=== PATIENT | male | born 1990 | race Caucasian/White ===

== ENCOUNTER 2018-06-26 13:44 | Emergency (ER) | payer MEDICARE, SELFPAY ==
[2018-06-26 13:46] VITALS: BP 137/87; PULSE 102; RESP 17; TEMP 36.5; O2SAT 98; BMI 43.7
[2018-06-26 14:14] VITALS: BP 143/84; PULSE 112; RESP 16; O2SAT 96
--- NOTE | 2018-06-26 15:11 | RAD_ITS ---
STUDY: X-RAY CHEST REASON FOR EXAM: Male, 27 years old. Cough. TECHNIQUE: PA and lateral views of the chest. COMPARISON: Comparison is made with prior study dated June 24, 2016. FINDINGS: The lungs are clear and expanded. Scattered calcified granulomas. There is no demonstrated pleural abnormality. Normal size heart. Normal mediastinum and kyle. Normal visualized pulmonary arteries. Normal visualized aortic arch and descending thoracic aorta. Normal visualized thoracic spine. Normal visualized ribs, clavicles, and shoulders. There is no demonstrated abnormality of the visualized soft tissue structures of the upper abdomen. RAD/Chest PA and Lateral IMPRESSION: Normal x-ray examination of the chest. Electronically Signed: Joel Ferraro MD at 15:53 EST , Service support ,
--- NOTE | 2018-06-26 15:12 | ED.VIS.GEN ---
History of Present Illness Chief Complaint: Shortness of Breath Detail of Chief Complaint: Rash started at 1330 Informant: Patient Onset: Days Context: Sudden Onset Quality: Viral symptoms presents because of rash noted at 1330 Location: Generalized Current Severity: Mild Maximum Severity: Mild Worsened by: Nothing Relieved by: Nothing Associated Symptoms: Pruritic rash with respiratory and GI symptoms Narrative: Patient is a 27-year-old male with history of asthma. He reports allergy to amoxicillin as a child. States he had a rash. He presents with mild congestion shortness of breath, which he thought was exacerbation of his asthma. He also complained of nausea. He is unaware of any recent ill contacts. He denies documented fever. He denies ocular, visual or auditory symptoms. He denies chest discomfort. He denies urologic symptoms. He denies ingestion of any berries, nuts or seafood for lunch. He has no known allergies to food. Prior similar symptoms: No Recent Illness/Hospitalization: No Past Medical History - Allergies and Home Meds Allergies/Adverse Reactions: Allergies acetaminophen [From Tylenol] Allergy (Verified 06/26/18 13:45) Unknown amoxicillin trihydrate [From Augmentin] Adverse Reaction (Verified 06/26/18 13:45) Vomiting diphenhydramine HCl [From Benadryl] Adverse Reaction (Verified 06/26/18 13:45) Other potassium clavulanate [From Augmentin] Adverse Reaction (Verified 06/26/18 13:45) Vomiting Primary Care Physician: Aniyah Arechiga MD [Primary Care Provider] - Past Medical History: - - Asthma Surgical History: no surgical history Lives: Alone Smoking Status: Never smoker Alcohol: Rare Drugs: None Review of Systems General: Denies: Chills, Fever, Sweats Eyes: Denies: Visual changes - bilaterally, Blurred Vision - bilaterally, Diplopia ENT: Reports: Rhinorrhea - He reports congestion. Denies: Bilateral ear pain, Sore throat Cardiovascular: Denies: Chest pain, Palpitations Respiratory: Reports: Dyspnea, Cough, Dyspnea on exertion. Denies: Sputum, Orthopnea, Paroxysmal nocturnal dyspnea Gastrointestinal: Reports: Nausea. Denies: Abdominal pain, Vomiting, Diarrhea, Melena, Hematochezia Genitourinary: Denies: Dysuria, Hematuria, Frequency Musculoskeletal: Denies: Myalgias, Arthralgias, Back pain, Extremity Pain Skin: Reports: Rash - generalize erythematous purutic rash.. Denies: Wounds Neurological: Denies: Headache, Weakness, Numbness Hematologic: Denies: Easy bruising, Easy bleeding Allergy: Denies: Uticaria, Swelling of the mouth, Swelling of the tongue Physical Exam Vital Signs/Narrative: Vital Signs Temp Pulse Resp BP Pulse Ox 06/26/18 14:14 112 H 16 143/84 H 96 06/26/18 13:46 97.7 F L 102 H 17 137/87 H 98 Inital Vital Signs reviewed: Yes General: Well nourished, Well developed, Obese, No Acute Distress Head: Normocephalic, Atraumatic Eyes: Perrl, EOMI. Negative for: Pale conjunctiva, Scleral icterus ENT: Moist mucous membranes, No rhinorrhea, - - There is no angioedema i.e. swelling of lips, tongue, uvula Neck: Supple, Nontender, No lymphadenopathy, - - There is no stridor Cardiovascular: Regular rate, Regular rhythm, No murmurs Respiratory: No distress, CTA bilaterally, Chest nontender. Negative for: Rales, Rhonchi, Wheezing, Decreased Air Movement Abdomen: Soft, Nontender, Nondistended, Normal bowel sounds Back: Normal Inspection Extremities: Nontender, No edema. Negative for: Tenderness Skin: Normal color, Rash - Rash is erythematous and generalized with bull's-eye lesions noted, erythema multiforma minor Neurological: Alert, Oriented x3, Cranial nerves II-XII grossly intact, Normal Strength, Normal Sensation Psychological: Normal affect, Normal Mood Diagnostic/Tx/Re-eval Chest X-Ray - ED: 2 View, Read by ED Physician, Normal, Heart, Lungs, Mediastinum, Bony Structures, No Acute Disease - Medical Decision Making Patient's generalized erythematous rash is consistent with erythema multiforme. This in all likelihood is secondary to recent viral infection. Since he is complaining of shortness of breath and exacerbation of asthma with a pulse ox of 93% with normal auscultatory exam of the lungs will obtain chest x-ray. ED Disposition - Plan for ED Patient: Disposition: Home or Assisted Living Diagnosis: Systemic viral illness, Erythema multiforme due to virus Instructions: ED Erythema Multiforme Referrals: Aniyah Arechiga MD [Primary Care Provider] - 10-14 Days if not better
[2018-06-26 16:10] VITALS: BP 118/75; PULSE 85; RESP 14; TEMP 36.6; O2SAT 98
== END 2018-06-26 16:11 | disposition home or self-care (01) ==
PROVIDERS: Emergency Provider Emergency Medicine; Family Provider Internal Medicine; PCP Internal Medicine
DX: B34.9 Viral infection, unspecified (principal); L51.9 Erythema multiforme, unspecified
CPT/HCPCS: 71046; A4216

== ENCOUNTER 2018-06-26 21:57 | Emergency (ER) | payer MEDICARE, SELFPAY ==
[2018-06-26 13:46] VITALS: BMI 43.7
[2018-06-26 21:57] VITALS: BP 144/91; PULSE 129; RESP 22; TEMP 37.3; O2SAT 98; BMI 42.3
--- NOTE | 2018-06-26 22:19 | ED.DCSUM_ITS ---
- ER Visit Summary Date of Service: 06/26/18 Chief Complaint: Concern for allergic reaction History of Present Illness: The patient is a 27 M presents to the emergency department for worsening rash. The patient was actually seen here earlier. At that time, he was diagnosed with erythema multiforme. He did have recent viral illness. He was reassured. He was discharged home. He states his rashes been worsening. He describes it as intensely itching. He denies any fevers or chills. He states he felt very lightheaded today and felt like he was going to pass out. He denies any other symptoms. He denies any new medications. Physical Examination: Vital signs reviewed General: Well-nourished, well-developed Head: Normocephalic, atraumatic Eyes: Pupils equal and reactive, extraocular muscles intact Neck, supple, no lymphadenopathy Heart: Regular rate and rhythm Respiratory: No distress, clear bilaterally Abdomen: Soft, nontender, nondistended, no peritoneal signs Back: Nontender Extremities: Nontender, no edema, no cords Skin: Normal color diffuse rash consistent with erythema multiforme Neuro: Alert and oriented, no focal or lateralizing deficits Test Results: [] Emergency Department Course and Treatment: The patient has erythema multiforme. IV was established. He was given fluids, Solu-Medrol, Pepcid, and Benadryl. Within 30 minutes, his rash is almost totally resolved. On reevaluation, he is resting comfortably. Screening labs were obtained. These are unremarkable. The patient was observed. He has had almost total resolution of his symptoms. I do feel that the best thing would be to keep him on a prednisone burst at this time. He is comfortable with this plan of care. He is very well-appearing. He is at resolution of his tachycardia. I do feel that he is safe for outpatient therapy and he agrees with this plan of care. Treatment Plan: [] Disposition: Discharge Impression: 1. Erythema multiforme This note was generated with [employer] dictation software. It may contain incorrect words, spelling, and punctuation that were not noted in review of the chart prior to signing ED Disposition - Plan for ED Patient: Instructions: ED Erythema Multiforme Prescriptions: Prednisone [Deltasone] 60 mg PO DAILY #15 tab Referrals: Aniyah Arechiga MD [Primary Care Provider] -
[2018-06-26] MEDS: 0.9% Normal Saline 1,000 ML 1000 ML IV (22:20)
[2018-06-26] MEDS: DiphenhydrAMINE 50 MG/ML Syringe 25 MG IV (22:25)
[2018-06-26] MEDS: MethylPREDNISolone 125 MG/2 ML Vial IV (22:32)
[2018-06-26 22:52] LABS: Absolute Lymphocyte Count 1.53 X10^3/ul (0.83-4.51); Absolute Neutrophil Count 8.6 X10^3/uL (2.0-7.7); Eosinophil# 0.02 X10^3/uL; Eosinophils% 0.2 % (0-5); Hemoglobin 16.3 g/dl (13.0-16.5); Lymphocyte # 1.53 X10^3/ul (4.0); Lymphocyte % 14.6 % (19-41); Mean Corpuscular Hgb 30.3 pg (27.0-32.0); Mean Corpuscular Volume 89.2 fL (80-94); Mean Platelet Vol. 11.4 fl (6.2-12.0); Monocyte# 0.32 X10^3/uL; Monocyte% 3.1 % (0-10); Neutrophil # 8.56 X10^3/uL (2.7-7.7); Neutrophil % 81.9 % (47-70); Platelet Count 166 K/mm3 (150-450); RBC Distribution Width CV 12.5 % (11.6-14.6); RBC Distribution Width SD 40.1 fl (35.1-43.9); Red Blood Count 5.38 M/mm3 (4.6-6.2); White Blood Count 10.5 K/mm3 (4.4-11.0)
[2018-06-26 22:58] LABS: ALB/GLOB Ratio 1.3 RATIO (0.9-2.4); AST(SGOT) 16 U/L (15-37); Alanine Aminotransfer ALT/SGPT 22 U/L (16-61); Alkaline Phosphatase 124 U/L (45-117); Anion Gap 9 (5-15); BUN 13 mg/dL (7-18); Calcium,Total 8.7 mg/dL (8.5-10.1); Chloride 106 mmol/L (98-107); Creatinine, Serum 1.18 mg/dL (0.70-1.30); EST Glomerular Filtration Rate 78 mL/min (>60); Est Glom Filt Rate - Afr Amer 95 mL/min (>60); Estimated Creatinine Clearance 109.33 ml/min; Globulin 3.1 g/dL (2.2-4.2); Glucose 170 mg/dL (74-106); Potassium 3.6 mmol/L (3.5-5.1); Protein, Total 7.1 g/dL (6.4-8.2); Sodium Level 137 mmol/L (136-145)
[2018-06-26 23:13] LABS: Differential Indicated SCAN CRITERIA MET; POSITIVE COUNT YES; POSITIVE DIFFERENTIAL NO; POSITIVE MORPHOLOGY NO
[2018-06-26 23:15] LABS: Differential Comment SCANNED; Platelet Estimate ADEQUATE (ADEQ)
[2018-06-27] VITALS: BP 136/65; PULSE 104; RESP 20; O2SAT 96
== END 2018-06-27 | disposition home or self-care (01) ==
LOC: ED 22:22
PROVIDERS: Emergency Provider Emergency Medicine; Family Provider Internal Medicine; PCP Internal Medicine
DX: L51.9 Erythema multiforme, unspecified (principal)
CPT/HCPCS: 71046; 80053; 85025; 96361; 96374; 96375; 99283; J7030; A4216; J3490

== ENCOUNTER 2018-06-30 05:05 | Emergency (ER) | payer MEDICARE, SELFPAY ==
[2018-06-30 05:05] VITALS: BP 150/93; PULSE 95; RESP 34; TEMP 36.4; O2SAT 93; BMI 44.7
--- NOTE | 2018-06-30 05:19 | RAD_ITS ---
STUDY: X-RAY CHEST REASON FOR EXAM: Male, 27 years old. Shortness of breath and cough. TECHNIQUE: PA and lateral views of the chest. COMPARISON: June 26, 2018. FINDINGS: Cardiac monitoring leads are present. The lungs are underexpanded with crowding of bronchovascular markings and obscuration of the lung bases. There is questionable bilateral infrahilar airspace consolidations and/or atelectasis. There is no demonstrated pleural abnormality. Normal size heart. Normal mediastinum and kyle. Normal visualized pulmonary arteries. Normal visualized aortic arch and descending thoracic aorta. Normal visualized thoracic spine. Normal visualized ribs, clavicles, and shoulders. There is no demonstrated abnormality of the visualized soft tissue structures of the upper abdomen. RAD/Chest PA and Lateral IMPRESSION: Bilateral basilar airspace disease and/or atelectasis could represent pneumonia. Electronically Signed: Cherry Alford MD at 6:25 EST , Service support ,
--- NOTE | 2018-06-30 05:21 | ED.VISSUMM ---
- ER Visit Summary Date of Service: 06/30/18 Chief Complaint: [] She stated he recently had erythema multiform treatment. He was having some shortness of breath starting 5 days ago when the rash came on. The rash is almost completely gone with prednisone treatment. He has 1 more day to take of this. He had a negative chest x-ray on Tuesday. He has been having a cough and states that when he takes a deep breath he has some discomfort in the center of his chest. He is bringing no sputum up. His symptoms are worse this morning. He did not get a flu shot. States that is just difficult to take a deep breath. History of Present Illness: The patient is a 27 M [] Physical Examination: [] Vital signs reviewed General: Well-nourished well-developed Head: Normocephalic atraumatic Eyes: Pupils equal round and reactive to light extraocular movements intact ENT: TMs clear no hemotympanum no trauma Neck: Nontender full range of motion Cardiovascular: Regular rate rhythm no murmurs normal S1-S2 Respiratory: No distress with mild tachypnea. Able to speak full sentences. Clear to auscultation bilaterally chest nontender Abdomen: Soft nontender nondistended normal bowel sounds no masses Back: Nontender no CVA tenderness Extremities: Nontender active range of motion ?4 extremities no trauma Skin: Normal color no trauma Neuro alert oriented cranial nerves II through XII intact normal strength sensation reflexes Test Results: [] Emergency Department Course and Treatment: [] Given a shot of Toradol IM. Influenza and chest x-ray obtained. The lungs are negative. Chest x-ray shows a right lower lobe pneumonia. Given levofloxacin. [place] better after treatment. We will continue this at home. I do not think he needs to be admitted. Treatment Plan: [] Disposition: [] Impression: [] Community acquired pneumonia This note was generated with [employer] dictation software. It may contain incorrect words, spelling, and punctuation that were not noted in review of the chart prior to signing ED Disposition - Plan for ED Patient: Referrals: Aniyah Arechiga MD [Primary Care Provider] -
[2018-06-30] MEDS: Ketorolac 30 MG/ML Syringe IM (05:32)
[2018-06-30 05:33] VITALS: O2SAT 99
--- NOTE | 2018-06-30 06:28 | ED.DEP ---
ED Disposition - Plan for ED Patient: Disposition: Home or Assisted Living Instructions: ED Pneumonia Adult Prescriptions: Levofloxacin [Levaquin] 750 mg PO DAILY #7 tab Referrals: Aniyah Arechiga MD [Primary Care Provider] -
[2018-06-30 06:31] VITALS: BP 134/86; RESP 18; O2SAT 95
[2018-06-30] MEDS: levoFLOXacin 750 MG Tablet PO (06:33)
== END 2018-06-30 06:39 | disposition home or self-care (01) ==
PROVIDERS: Emergency Provider Emergency Medicine; Family Provider Internal Medicine; PCP Internal Medicine
DX: J18.9 Pneumonia, unspecified organism (principal); J45.909 Unspecified asthma, uncomplicated; E66.9 Obesity, unspecified; Z68.41 Body mass index [BMI] 40.0-44.9, adult
CPT/HCPCS: 71046; 87804; 96372; 99284

== ENCOUNTER 2018-08-11 12:55 | Emergency (ER) | payer MEDICARE, SELFPAY ==
[2018-08-11 12:55] VITALS: BP 150/80; PULSE 90; RESP 16; TEMP 36.4; O2SAT 100; BMI 42.0
--- NOTE | 2018-08-11 13:35 | RAD_ITS ---
STUDY: X-RAY CHEST REASON FOR EXAM: Male, 27 years old. Shortness of breath. Rash. TECHNIQUE: PA and lateral views of the chest. COMPARISON: Comparison is made with prior study dated June 30, 2018. FINDINGS: The lungs are clear and expanded. There is no demonstrated pleural abnormality. Normal size heart. Normal mediastinum and kyle. Normal visualized pulmonary arteries. Normal visualized aortic arch and descending thoracic aorta. Normal visualized thoracic spine. Normal visualized ribs, clavicles, and shoulders. There is no demonstrated abnormality of the visualized soft tissue structures of the upper abdomen. RAD/Chest PA and Lateral IMPRESSION: Normal x-ray examination of the chest. Electronically Signed: Joel Ferraro, at 13:48 EDT , Service support ,
--- NOTE | 2018-08-11 14:19 | ED.VIS.GEN ---
History of Present Illness Chief Complaint: Rash Narrative: 27-year-old male presents with a rash on his hands and legs for the past 2 days. He had a similar rash a few months ago that resolved with Benadryl. He states that one injection of Benadryl and a prednisone burst took care of it. He also has a slight cough for 2 days and is concerned that he is getting pneumonia again. He denies fever, chills, or body aches. No myalgias. No chest pain or shortness of breath. No trouble swallowing. Denies any exposures to anything that could be causing the rash. Current severity is mild. No relieving or exacerbating factors. Onset was gradual. Past Medical History - Allergies and Home Meds Allergies/Adverse Reactions: Allergies acetaminophen [From Tylenol] Allergy (Verified 08/11/18 12:58) Unknown amoxicillin trihydrate [From Augmentin] Adverse Reaction (Verified 08/11/18 12:58) Vomiting ORAL ONLY diphenhydramine HCl [From Benadryl] Adverse Reaction (Verified 08/11/18 12:58) Other potassium clavulanate [From Augmentin] Adverse Reaction (Verified 08/11/18 12:58) Vomiting Primary Care Physician: Aniyah Arechiga MD [Primary Care Provider] - Prior records reviewed: Yes Past Medical History: None Surgical History: no surgical history Smoking Status: Never smoker Review of Systems All systems negative except as indicated General: Denies: Chills, Fever, Sweats Eyes: Denies: Visual changes - bilaterally, Diplopia ENT: Denies: Rhinorrhea, Sore throat Cardiovascular: Denies: Chest pain, Palpitations Respiratory: Reports: Cough. Denies: Dyspnea, Dyspnea on exertion Gastrointestinal: Denies: Abdominal pain, Nausea, Vomiting, Diarrhea, Melena, Hematochezia Genitourinary: Denies: Dysuria, Hematuria, Frequency Musculoskeletal: Denies: Back pain, Extremity Pain Skin: Reports: Rash. Denies: Wounds Neurological: Denies: Headache, Weakness, Numbness Physical Exam Vital Signs/Narrative: Vital Signs Temp Pulse Resp BP Pulse Ox 08/11/18 12:55 97.6 F L 90 16 150/80 H 100 Inital Vital Signs reviewed: Yes General: Well nourished, Well developed, No Acute Distress Head: Normocephalic, Atraumatic Eyes: Perrl, EOMI ENT: Moist mucous membranes, No rhinorrhea Neck: Supple, Nontender Cardiovascular: Regular rate, Regular rhythm, No murmurs Respiratory: No distress, CTA bilaterally, Chest nontender Abdomen: Soft, Nontender, Nondistended, Normal bowel sounds Back: Nontender, Normal Inspection Extremities: Nontender, No edema Skin: Normal color, - - He has a scattered maculopapular rash on both of his hands, right forearm, and a small area on his right leg. No petechiae. Neurological: Alert, Oriented x3, Cranial nerves II-XII grossly intact, Normal Strength, Normal Sensation Psychological: Normal affect, Normal Mood Diagnostic/Tx/Re-eval - Medical Decision Making He states that he cannot take Benadryl pills but he tolerates the injections. He was given intramuscular Benadryl here and I will place him on prednisone for 5 days. His lungs are clear and I ordered a chest x-ray, two-view, which was negative. He looks well. No evidence of a life-threatening rash and I feel he can safely follow-up with his primary care doctor. ED Disposition - Plan for ED Patient: Diagnosis: Urticarial rash, Upper respiratory infection Instructions: ED Dermatitis Non Specific Rash, ED Upper Resp Infec No Abx Tx Prescriptions: Prednisone [Deltasone] 40 mg PO DAILY #10 tablet Referrals: Aniyah Arechiga MD [Primary Care Provider] -
[2018-08-11] MEDS: DiphenhydrAMINE 50 MG/ML Syringe IM (14:36)
== END 2018-08-11 14:43 | disposition home or self-care (01) ==
LOC: ED 13:43
PROVIDERS: Emergency Provider Emergency Medicine; Family Provider Internal Medicine; PCP Internal Medicine
DX: L50.9 Urticaria, unspecified (principal); J06.9 Acute upper respiratory infection, unspecified
CPT/HCPCS: 71046; 96372; 99282

== ENCOUNTER 2018-10-15 15:22 | Emergency (ER) | payer MEDICARE, SELFPAY ==
[2018-10-15 15:23] VITALS: BP 159/83; PULSE 101; RESP 18; TEMP 36.9; O2SAT 98; BMI 42.3
--- NOTE | 2018-10-15 15:33 | CT_ITS ---
STUDY: CT ABDOMEN AND PELVIS WITHOUT CONTRAST REASON FOR EXAM: Male, 28 years old. Right lower quadrant pain RADIATION DOSAGE (If Supplied By Facility): CTDIvol = ( 33.91 ) mGy, DLP = ( 2067.55 ) mGycm TECHNIQUE: Transaxial images were obtained from the dome of the diaphragm to the symphysis pubis without oral contrast, and without intravenous contrast. Sagittal and coronal images were reconstructed. Individualized dose optimization techniques were used for this CT. COMPARISON: None. FINDINGS: The visualized lung bases are unremarkable. The visualized portions of the heart are within normal limits. Normal liver. Normal gallbladder and extrahepatic biliary system. Splenomegaly, with spleen length of 15 cm. Normal pancreas. Normal bilateral adrenal glands. Multiple small nonobstructing bilateral renal stones. Normal visualized stomach. Normal small intestine. Normal colon. The appendix is visualized and appears normal. Normal abdominal aorta. Normal inferior vena cava. Normal retroperitoneum. Normal urinary bladder. Normal abdominal wall. Normal osseous structures. CT/Abdomen/Pelvis without Cont IMPRESSION: Normal appendix. No evidence of acute intestinal pathology or acute obstructive uropathy. Splenomegaly. Electronically Signed: Kam Hollingsworth MD at 16:11 EDT Tel , Service support ,
--- NOTE | 2018-10-15 15:39 | ED.DCSUM_ITS ---
History of Present Illness <Tito Kam - Last Filed: 10/15/18 16:31> Informant: Patient, Significant Other - Abdominal Pain/Flank Pain Onset: Today Context: Sudden Onset Timing: Intermittent Quality: Sharp Location: RLQ, Right Flank Current Severity: Severe Maximum Severity: Severe Worsened by: Nothing Relieved by: Remaining Still - Nausea/Vomiting/Emesis GI Symptom: Nausea Onset: Today Severity: Severe - Diarrhea/Melena/Hematochezia GI Symptom: Diarrhea Onset: Today Stool Quality: Loose, Watery Severity: Severe Associated Symptoms: Negative for: Dysuria, Frequency, Hematuria, Urgency Narrative: 28-year-old male with a past medical history of kidney stones presents to the emergency department with right flank pain. The pain started suddenly at rest approximately 40 minutes prior to arrival. He began to have sharp and stabbing right flank pain. Is been intermittent. He states nothing makes it better or worse. It radiates to his right lower quadrant. He has not had any nausea or vomiting he did have one episode of loose stool but no melena or hematochezia. He denies dysuria, hematuria, urinary frequency or urgency. He has a history of kidney stones including multiple lithotripsies in the past with the most recent being over one year ago. He is not lightheaded or dizzy. He has no chest pain or shortness of breath. He is not having any back pain. He is been able to ambulate normally. Prior similar symptoms: Yes Recent Illness/Hospitalization: No <Sheng Silva - Last Filed: 10/15/18 17:02> Chief Complaint: Abd Pain Past Medical History <Tito Kam - Last Filed: 10/15/18 16:31> Prior records reviewed: Yes Past Medical History: - - kidney stones Surgical History: - - Lithotripsy Lives: With Family Smoking Status: Never smoker <Sheng Silva - Last Filed: 10/15/18 17:02> - Allergies and Home Meds Allergies/Adverse Reactions: Allergies acetaminophen [From Tylenol] Adverse Reaction (Verified 10/15/18 15:33) Unknown JUST DOESN'T WORK amoxicillin trihydrate [From Augmentin] Adverse Reaction (Verified 10/15/18 15:25) Vomiting ORAL ONLY diphenhydramine HCl [From Benadryl] Adverse Reaction (Verified 10/15/18 15:25) Other potassium clavulanate [From Augmentin] Adverse Reaction (Verified 10/15/18 15:25) Vomiting Primary Care Physician: Aniyah Arechiga MD [Primary Care Provider] - Review of Systems All systems negative except as indicated General: Denies: Chills, Fever Cardiovascular: Denies: Chest pain Respiratory: Denies: Dyspnea Gastrointestinal: Reports: Abdominal pain, Nausea, Diarrhea. Denies: Vomiting, Constipation, Melena, Hematochezia Genitourinary: Denies: Dysuria, Hematuria, Frequency Musculoskeletal: Denies: Back pain Neurological: Denies: Weakness, Parasthesia, Numbness <Sheng Silva - Last Filed: 10/15/18 17:02> Physical Exam Vital Signs/Narrative: Vital Signs Temp Pulse Resp BP Pulse Ox 10/15/18 15:23 98.5 F 101 H 18 159/83 H 98 <Tito Kam - Last Filed: 10/15/18 16:31> Vital Signs/Narrative: Vital Signs Temp Pulse Resp BP Pulse Ox 10/15/18 15:23 98.5 F 101 H 18 159/83 H 98 General: Well nourished, Well developed, No Acute Distress Head: Normocephalic, Atraumatic Eyes: Perrl, EOMI ENT: Moist mucous membranes, No rhinorrhea Neck: Supple, Nontender Cardiovascular: Regular rate, Regular rhythm, No murmurs Respiratory: No distress, CTA bilaterally, Chest nontender Abdomen: Soft, Nontender, Nondistended, Normal bowel sounds Back: Nontender, Normal Inspection. Negative for: CVA tenderness Extremities: Nontender, No edema Skin: Normal color, No rash Neurological: Alert, Oriented x3 Psychological: Normal affect <Sheng Silva - Last Filed: 10/15/18 17:02> Diagnostic/Tx/Re-eval - Medical Decision Making 28-year-old male prior history of kidney stone complaining of right flank pain. I evaluated this patient with our physician assistant speech language pathologist. Well-appearing male no acute distress. Vital signs are stable and afebrile. I did evaluate him after he received pain medications. Lungs are clear. Heart regular rhythm no murmur. Abdomen is soft without peritoneal signs. There is no specific or localizing right upper quadrant or Caldera sign. There is no McBurney's point tenderness. Extremities moves all 4. Back is nontender. Labs: CBC normal. Chemistries normal. Normal BUN and creatinine. Urine analysis is pending and will be checked prior to discharge. CT flank study showed right renal calculi but no acute ureteral stone or obstruction. Appendix is seen and is unremarkable. Repeat exam is doing well. Impression right flank pain uncertain etiology History of kidney stones <Tito Kam - Last Filed: 10/15/18 16:31> ED Disposition <Tito Kam - Last Filed: 10/15/18 16:31> <Sheng Silva - Last Filed: 10/15/18 17:02> - Plan for ED Patient: Disposition: Home or Assisted Living Diagnosis: Acute flank pain Instructions: ED Flank Pain Uncertain Cause Referrals: Aniyah Arechiga MD [Primary Care Provider] -
[2018-10-15] MEDS: 0.9% Normal Saline 1,000 ML 1000 ML IV (15:41)
[2018-10-15] MEDS: Ketorolac 30 MG/ML Syringe IV (15:41)
[2018-10-15] MEDS: Morphine 4 MG/ML Syringe IV (15:41)
[2018-10-15] MEDS: Ondansetron 4 MG/2 ML Vial IV (15:51)
[2018-10-15 16:01] LABS: Absolute Lymphocyte Count 1.87 X10^3/ul (0.83-4.51); Absolute Neutrophil Count 4.7 X10^3/uL (2.0-7.7); Basophil# 0.02 X10^3/uL; Basophil% 0.3 % (0-1); Eosinophil# 0.29 X10^3/uL; Eosinophils% 3.9 % (0-5); Hemoglobin 14.2 g/dl (13.0-16.5); Lymphocyte # 1.87 X10^3/ul (4.0); Lymphocyte % 25.1 % (19-41); Mean Corp Hgb Conc 34.6 g/gl (32-36); Mean Corpuscular Hgb 30.8 pg (27.0-32.0); Mean Corpuscular Volume 88.9 fL (80-94); Mean Platelet Vol. 10.6 fl (6.2-12.0); Monocyte# 0.53 X10^3/uL; Monocyte% 7.1 % (0-10); Neutrophil # 4.72 X10^3/uL (2.7-7.7); Neutrophil % 63.3 % (47-70); Platelet Count 160 K/mm3 (150-450); RBC Distribution Width CV 12.6 % (11.6-14.6); RBC Distribution Width SD 40.5 fl (35.1-43.9); Red Blood Count 4.61 M/mm3 (4.6-6.2); White Blood Count 7.5 K/mm3 (4.4-11.0)
[2018-10-15 16:02] LABS: POSITIVE COUNT NO; POSITIVE DIFFERENTIAL NO; POSITIVE MORPHOLOGY NO
[2018-10-15 16:11] LABS: Anion Gap 5 (5-15); BUN 13 mg/dL (7-18); BUN/Creat Ratio 13.1 RATIO (10-20); Calcium,Total 8.8 mg/dL (8.5-10.1); Chloride 107 mmol/L (98-107); Creatinine, Serum 0.99 mg/dL (0.70-1.30); EST Glomerular Filtration Rate 95 mL/min (>60); Est Glom Filt Rate - Afr Amer 115 mL/min (>60); Estimated Creatinine Clearance 129.16 ml/min; Glucose 102 mg/dL (74-106); Potassium 3.6 mmol/L (3.5-5.1); Sodium Level 140 mmol/L (136-145)
[2018-10-15 16:45] LABS: Mucous, Urine 0 SEEN /hpf (<or=2+); Red Blood Cells-Urine 0 SEEN /hpf (0-5)
[2018-10-15 16:49] LABS: Color, Urine Yellow (Yellow); Glucose, Dipstick Normal (Normal); Ketone-Dipstick Negative (Negative); Leukocyte Esterase-Dipstick Negative /ul (Negative); Nitrite-Dipstick Negative (Negative); Occult Blood-Urine Negative /ul (Negative); Protein-Dipstick Negative (Negative); Urine Bilirubin Dipstick Negative (Negative); Urine Clarity Sl. Cloudy (Clear); Urine Urobilinogen Normal (Normal); Urine pH 6.5 (5.0 - 8.0)
[2018-10-15 16:55] LABS: Bacteria RARE /hpf (None Seen); Squamous Epithelial Cells - UA 0-5 SEEN /hpf (0-5); White Blood Cells 0-5 SEEN /hpf (0-5)
[2018-10-15 17:14] VITALS: BP 134/73; PULSE 82; RESP 16; O2SAT 98
== END 2018-10-15 17:15 | disposition home or self-care (01) ==
PROVIDERS: Emergency Provider Physician Assistant Medical; Family Provider Internal Medicine; PCP Internal Medicine
DX: R10.9 Unspecified abdominal pain (principal); Z87.442 Personal history of urinary calculi
CPT/HCPCS: 74176; 80048; 81001; 85025; 96361; 96374; 96375; 99283; J7030; J2405

== ENCOUNTER 2018-10-19 05:33 | Emergency (ER) | payer MEDICARE, SELFPAY ==
[2018-10-19 05:34] VITALS: BP 131/86; PULSE 103; RESP 16; TEMP 36.8; O2SAT 97; BMI 44.4
--- NOTE | 2018-10-19 05:44 | ED.DCSUM_ITS ---
History of Present Illness Chief Complaint: Flank Pain Informant: Patient Narrative: Kidney stone pain per patient for the last 4 days. He was seen in the emergency department on the with a CAT scan that showed bilateral small nonobstructing kidney stones. Nothing in the ureter. He does have history of kidney stones. He had lithotripsy remotely. He has not followed up with his urologist. Is not taking any pain medicine. The pain got worse tonight. Is a sharp right flank pain. No radiation. No nausea or vomiting. No blood in his urine. He had lab work that was essentially unremarkable recently as well. Comes in for further treatment. Had a leave work secondary to the pain. Past Medical History - Allergies and Home Meds Allergies/Adverse Reactions: Allergies acetaminophen [From Tylenol] Adverse Reaction (Verified 10/19/18 05:37) Unknown JUST DOESN'T WORK amoxicillin trihydrate [From Augmentin] Adverse Reaction (Verified 10/19/18 05:37) Vomiting ORAL ONLY diphenhydramine HCl [From Benadryl] Adverse Reaction (Verified 10/19/18 05:37) Other potassium clavulanate [From Augmentin] Adverse Reaction (Verified 10/19/18 05:37) Vomiting Primary Care Physician: Aniyah Arechiga MD [Primary Care Provider] - Prior records reviewed: Yes Past Medical History: - - Kidney stone Surgical History: - - Lithotripsy Smoking Status: Never smoker Alcohol: None Drugs: None Review of Systems General: Denies: Chills, Fever, Sweats Eyes: Denies: Visual changes - bilaterally, Diplopia ENT: Denies: Rhinorrhea, Sore throat Cardiovascular: Denies: Chest pain, Palpitations Respiratory: Denies: Dyspnea, Cough, Dyspnea on exertion Gastrointestinal: Denies: Abdominal pain, Nausea, Vomiting, Diarrhea, Melena, Hematochezia Genitourinary: Denies: Dysuria, Hematuria, Frequency Musculoskeletal: Reports: Back pain. Denies: Extremity Pain Skin: Denies: Rash, Wounds Neurological: Denies: Headache, Weakness, Numbness Physical Exam Vital Signs/Narrative: Vital Signs Temp Pulse Resp BP Pulse Ox 10/19/18 05:34 98.2 F 103 H 16 131/86 H 97 General: Well nourished, Well developed, No Acute Distress Head: Normocephalic, Atraumatic Eyes: Perrl, EOMI ENT: Moist mucous membranes, No rhinorrhea Neck: Supple, Nontender Cardiovascular: Regular rate, Regular rhythm, No murmurs Respiratory: No distress, CTA bilaterally, Chest nontender Abdomen: Soft, Nontender, Nondistended, Normal bowel sounds Back: Nontender, Normal Inspection Extremities: Nontender, No edema Skin: Normal color, No rash Neurological: Alert, Oriented x3, Cranial nerves II-XII grossly intact, Normal Strength, Normal Sensation Psychological: Normal affect, Normal Mood Diagnostic/Tx/Re-eval - Medical Decision Making given 1 dose of morphine and Toradol. Will be discharged with meloxicam. We will follow-up as an outpatient. At this time I feel he needs repeat lab work or imaging. He had small nonobstructing stones. Perhaps 1 of them has come d own into the ureter. He does not appear toxic. I do not think he needs narcotics for home. We will follow-up with his urologist. ED Disposition - Plan for ED Patient: Disposition: Home or Assisted Living Diagnosis: Renal colic on right side Instructions: KIDNEY STONE w/ Colic Prescriptions: Meloxicam 15 mg PO DAILY #14 tab Prescription Printed Referrals: Aniyah Arechiga MD [Primary Care Provider] - Additional Instructions: Follow with your urologist as an outpatient in the next 3 to 5 days
[2018-10-19] MEDS: Morphine 4 MG/ML Syringe IV (05:51)
[2018-10-19] MEDS: Ketorolac 15 MG/ML Vial IV (05:51)
[2018-10-19 06:10] VITALS: BP 131/76; PULSE 82; RESP 18; O2SAT 99
--- NOTE | 2018-10-19 06:10 | ED.RN ---
THIS NURSE REVIEWED D/C INSTRUCTIONS WITH PT. PT VERBALIZED UNDERSTANDING OF INSTRUCTIONS. IV D/C. IV CATHETER INTACT. PT TOLERATED WELL. PT DENIES FURTHER NEEDS OR QUESTIONS AT THIS TIME. PT AMBULATES FROM ROOM ON OWN WITHOUT ASSISTANCE FROM STAFF
== END 2018-10-19 06:11 | disposition home or self-care (01) ==
LOC: ED 06:05
PROVIDERS: Emergency Provider Emergency Medicine; Family Provider Internal Medicine; PCP Internal Medicine
DX: N20.0 Calculus of kidney (principal); Z87.442 Personal history of urinary calculi
CPT/HCPCS: 96374; 96375; 99282; A4216

== ENCOUNTER 2019-01-10 19:20 | Emergency (ER) | payer MEDICARE, SELFPAY ==
[2019-01-10 19:21] VITALS: BP 152/80; PULSE 89; RESP 18; TEMP 36.8; O2SAT 100; BMI 44.1
--- NOTE | 2019-01-10 21:05 | ED.VISSUMM ---
- ER Visit Summary Date of Service: 01/10/19 Chief Complaint: Dental pain History of Present Illness: The patient is a 28 M with a dental abscess in his left mandibular teeth. Physical Examination: There is a 1 cm abscess in the left mandibular premolar area. Otherwise exam unremarkable. Test Results: None performed Emergency Department Course and Treatment: Needle aspiration performed. Pus expressed. Treatment Plan: Continue home antibiotics. Follow-up with dental next week as planned. Return for any complications. Disposition: Discharge Impression: 1. Dental abscess This note was generated with [employer] dictation software. It may contain incorrect words, spelling, and punctuation that were not noted in review of the chart prior to signing ED Disposition - Plan for ED Patient: Disposition: Home or Assisted Living Instructions: Dental Abscess Additional Instructions: follow up with dental
--- NOTE | 2019-01-10 21:05 | ED.DEP ---
ED Disposition - Plan for ED Patient: Instructions: Dental Abscess Additional Instructions: follow up with dental
[2019-01-10 21:22] VITALS: BP 148/80; PULSE 84; RESP 16; O2SAT 100
== END 2019-01-10 21:28 | disposition home or self-care (01) ==
LOC: ED 20:26
PROVIDERS: Emergency Provider Emergency Medicine; Family Provider Internal Medicine; PCP Internal Medicine
DX: K04.7 Periapical abscess without sinus (principal)
CPT/HCPCS: 10021; 99281

== ENCOUNTER 2019-05-19 06:21 | Emergency (ER) | payer MEDICARE, MEDICAID, SELFPAY ==
[2019-05-19 06:22] VITALS: BP 139/86; PULSE 77; RESP 16; TEMP 36.7; O2SAT 99; BMI 45.0
--- NOTE | 2019-05-19 06:32 | ED.VIS.GEN ---
History of Present Illness Chief Complaint: GI Bleed Informant: Patient Narrative: Patient stated he had one episode of bloody diarrhea prior to coming in. He has had mild cramping in his abdomen. He denies any rectal pain. No history of hemorrhoids. He felt fine yesterday. He did eat [employer] food 2 days ago. No fevers or chills. No nausea or vomiting. No home treatment. He is on no blood thinners. Never had a colonoscopy. Past Medical History - Allergies and Home Meds Allergies/Adverse Reactions: Allergies acetaminophen [From Tylenol] Adverse Reaction (Verified 05/19/19 06:25) Unknown JUST DOESN'T WORK amoxicillin trihydrate [From Augmentin] Adverse Reaction (Verified 05/19/19 06:25) Vomiting ORAL ONLY diphenhydramine HCl [From Benadryl] Adverse Reaction (Verified 05/19/19 06:25) Other potassium clavulanate [From Augmentin] Adverse Reaction (Verified 05/19/19 06:25) Vomiting Primary Care Physician: Aniyah Arechiga MD [Primary Care Provider] - Prior records reviewed: Yes Past Medical History: - - Kidney stone Surgical History: - - Lithotripsy Lives: With Family Smoking Status: Never smoker Alcohol: None Drugs: None Review of Systems General: Denies: Chills, Fever, Sweats Eyes: Denies: Visual changes - bilaterally, Diplopia ENT: Denies: Rhinorrhea, Sore throat Cardiovascular: Denies: Chest pain, Palpitations Respiratory: Denies: Dyspnea, Cough, Dyspnea on exertion Gastrointestinal: Reports: Abdominal pain, Hematochezia. Denies: Nausea, Vomiting, Diarrhea, Melena Genitourinary: Denies: Dysuria, Hematuria, Frequency Musculoskeletal: Denies: Back pain, Extremity Pain Skin: Denies: Rash, Wounds Neurological: Denies: Headache, Weakness, Numbness Physical Exam Vital Signs/Narrative: Vital Signs Temp Pulse Resp BP Pulse Ox 05/19/19 06:22 98.1 F 77 16 139/86 H 99 General: Well nourished, Well developed, No Acute Distress Head: Normocephalic, Atraumatic Eyes: Perrl, EOMI ENT: Moist mucous membranes, No rhinorrhea Neck: Supple, Nontender Cardiovascular: Regular rate, Regular rhythm, No murmurs Respiratory: No distress, CTA bilaterally, Chest nontender Abdomen: Soft, Nontender, Nondistended, Normal bowel sounds Back: Nontender, Normal Inspection Extremities: Nontender, No edema Skin: Normal color, No rash Neurological: Alert, Oriented x3, Cranial nerves II-XII grossly intact, Normal Strength, Normal Sensation Psychological: Normal affect, Normal Mood Diagnostic/Tx/Re-eval - Medical Decision Making Patient refused rectal exam. He understands the risk of this. At this time I feel he is had one episode of bloody diarrhea likely infectious diarrhea. Lab work obtained. Work shows no abnormalities. Is chronically low at 141. This is unchanged from chronic mildly low platelets. At this time I feel he has one episode of infectious bloody diarrhea. Will be treated with antibiotics Cipro Flagyl. Will be discharged with Bentyl. We will follow-up as an outpatient. I do not feel he is toxic. I do not think he needs an emergent colonoscopy. ED Disposition - Plan for ED Patient: Disposition: Home or Assisted Living Diagnosis: Bloody diarrhea Instructions: DIARRHEA, Bacterial (6y-Adult) Prescriptions: Dicyclomine HCl [Bentyl] 20 mg PO TIDAC #20 cap Prescription Printed Ciprofloxacin [Cipro] 500 mg PO BID #14 tab Prescription Printed metroNIDAZOLE [Flagyl] 500 mg PO Q8H #21 tab Prescription Printed Referrals: Aniyah Arechiga MD [Primary Care Provider] -
[2019-05-19 06:43] LABS: Absolute Lymphocyte Count 1.35 X10^3/uL (0.83-4.51); Absolute Neutrophil Count 3.7 X10^3/uL (2.0-7.7); Basophil# 0.02 X10^3/uL; Basophil% 0.4 % (0-1); Eosinophil# 0.07 X10^3/uL; Eosinophils% 1.3 % (0-5); Hematocrit 42.3 % (40-54); Hemoglobin 14.5 g/dL (13.0-16.5); Lymphocyte # 1.35 X10^3/ul (4.0); Lymphocyte % 24.3 % (19-41); Mean Corp Hgb Conc 34.3 g/dL (32-36); Mean Corpuscular Hgb 30.5 pg (27.0-32.0); Mean Corpuscular Volume 88.9 fL (80-94); Mean Platelet Vol. 10.4 fl (6.2-12.0); Monocyte# 0.36 X10^3/uL; Monocyte% 6.5 % (0-10); NRBC Flagged by Analyzer 0 % (0-5); Neutrophil # 3.74 X10^3/uL (2.7-7.7); Neutrophil % 67.1 % (47-70); Platelet Count 141 K/mm3 (150-450); RBC Distribution Width CV 11.8 % (11.6-14.6); RBC Distribution Width SD 37.9 fl (35.1-43.9); Red Blood Count 4.76 M/mm3 (4.6-6.2); White Blood Count 5.6 K/mm3 (4.4-11.0)
--- NOTE | 2019-05-19 06:48 | ED.RN ---
Received call from Rayshawn in lab, no co-ag reagent. They need to make new reagent and then run the lab. Hopefully to get results back within the hr or a little after.
[2019-05-19 06:59] LABS: ALB/GLOB Ratio 1.2 RATIO (0.9-2.4); AST(SGOT) 12 U/L (15-37); Alanine Aminotransfer ALT/SGPT 24 U/L (16-61); Albumin, Serum 3.8 g/dL (3.2-5.0); Alkaline Phosphatase 113 U/L (45-117); Anion Gap 5 (5-15); BUN 10 mg/dL (7-18); BUN/Creat Ratio 10.1 RATIO (10-20); Calcium,Total 8.8 mg/dL (8.5-10.1); Chloride 106 mmol/L (98-107); Creatinine, Serum 0.99 mg/dL (0.70-1.30); EST Glomerular Filtration Rate 95 mL/min (>60); Est Glom Filt Rate - Afr Amer 115 mL/min (>60); Estimated Creatinine Clearance 129.16 ml/min; Globulin 3.3 g/dL (2.2-4.2); Glucose 116 mg/dL (74-106); Potassium 3.9 mmol/L (3.5-5.1); Protein, Total 7.1 g/dL (6.4-8.2); Sodium Level 140 mmol/L (136-145)
[2019-05-19] MEDS: Ciprofloxacin 500 MG Tablet PO (07:16)
[2019-05-19] MEDS: metroNIDAZOLE 500 MG Tablet PO (07:16)
[2019-05-19 07:55] LABS: Prothrombin Time (Protime)PT. 12.8 SECONDS (11.7-14.9)
[2019-05-19 07:56] LABS: Partial Thromboplast Time 34.6 Seconds (24.1-36.2)
== END 2019-05-19 08:11 | disposition home or self-care (01) ==
LOC: ED 06:49
PROVIDERS: Emergency Provider Emergency Medicine; PCP Internal Medicine
DX: R19.7 Diarrhea, unspecified (principal); D69.6 Thrombocytopenia, unspecified; Z87.442 Personal history of urinary calculi
CPT/HCPCS: 80053; 85025; 85610; 85730; 99283

== ENCOUNTER 2019-07-06 08:17 | Emergency (ER) | payer MEDICAID, SELFPAY ==
[2019-07-06 08:17] VITALS: BP 147/83; PULSE 87; RESP 18; TEMP 36.8; O2SAT 98; BMI 43.4
--- NOTE | 2019-07-06 08:32 | CT_ITS ---
STUDY: CT ABDOMEN AND PELVIS WITHOUT CONTRAST REASON FOR EXAM: Male, 28 years old. RIGHT FLANK PAIN -- HX-KIDNEY STONES RADIATION DOSAGE (If Supplied By Facility): CTDIvol = ( 33.99 ) mGy, DLP = ( 1936.15 ) mGycm TECHNIQUE: Transaxial images were obtained from the dome of the diaphragm to the symphysis pubis without oral contrast, and without intravenous contrast. Sagittal and coronal images were reconstructed. Individualized dose optimization techniques were used for this CT. COMPARISON: Comparison is made with prior study dated October 15, 2018. FINDINGS: The visualized lung bases are unremarkable. The visualized portions of the heart are within normal limits. Normal liver. Normal gallbladder and extrahepatic biliary system. There is mild splenomegaly. Normal pancreas. Normal bilateral adrenal glands. There is a 3.5 mm calculus in the midportion of the right kidney. 2 adjacent 4 mm calculi are also seen in the lower pole calyx of the right kidney. Normal left kidney. Normal visualized stomach. Normal small intestine. Normal colon. The appendix is visualized and appears normal. Normal abdominal aorta. Normal inferior vena cava. Normal retroperitoneum. Normal urinary bladder. Normal abdominal wall. Normal osseous structures. CT/Abdomen/Pelvis without Cont IMPRESSION: Stable nonobstructive right intrarenal calculi. No obstructive uropathy is seen at this time. Electronically Signed: Joel Ferraro, at 9:28 EST , Service support ,
--- NOTE | 2019-07-06 08:35 | ED.VIS.GI ---
History of Present Illness Chief Complaint: Flank Pain Informant: Patient - Abdominal Pain/Flank Pain Onset: Today Context: Sudden Onset Timing: Continuous, Waxes and wanes Quality: Sharp Location: RLQ, Right Flank - Nausea/Vomiting/Emesis GI Symptom: Nausea. Negative for: Vomiting Onset: Today - Diarrhea/Melena/Hematochezia GI Symptom: Negative for: Diarrhea, Melena, Hematochezia Associated Symptoms: Dysuria, Hematuria. Negative for: Frequency Narrative: Patient is a 28-year-old male with history of a 12 mm obstructing kidney stone 2 years ago presenting with sudden onset of right flank pain. Patient states he was having some mild right back pain last night but that is just a muscle ache and seemed to be worse when he moved. This morning when he urinated he feels like he passed a small kidney stone. After that he started to have a sharp pain in his right lower quadrant/flank area. The pain radiates to his back. The pain is constant but waxes and wanes in intensity. He denies any testicular pain. He has associated hematuria and mild dysuria. He denies any fever or chills. He has no chest pain, shortness of breath difficulty breathing. He does have associated nausea but no vomiting. His bowel movements been normal. He states this feels like his prior kidney stone. He saw Dr. Cr through [facility] in the past but he thinks that doctor retired and he does not have a current urologist. Past Medical History - Allergies and Home Meds Allergies/Adverse Reactions: Allergies acetaminophen [From Tylenol] Adverse Reaction (Verified 07/06/19 08:19) Unknown JUST DOESN'T WORK amoxicillin trihydrate [From Augmentin] Adverse Reaction (Verified 07/06/19 08:19) Vomiting ORAL ONLY diphenhydramine HCl [From Benadryl] Adverse Reaction (Verified 07/06/19 08:19) Other potassium clavulanate [From Augmentin] Adverse Reaction (Verified 07/06/19 08:19) Vomiting Primary Care Physician: Aniyah Arechiga MD [Primary Care Provider] - Past Medical History: - - Kidney stones Surgical History: - - Lithotripsy Lives: Spouse/ Significant Other Smoking Status: Never smoker Review of Systems General: Denies: Chills, Fever, Sweats Eyes: Denies: Visual changes - bilaterally, Diplopia ENT: Denies: Rhinorrhea, Sore throat Cardiovascular: Denies: Chest pain, Palpitations Respiratory: Denies: Dyspnea, Cough, Dyspnea on exertion Gastrointestinal: Reports: Abdominal pain, Nausea. Denies: Vomiting, Diarrhea, Melena, Hematochezia Genitourinary: Reports: Dysuria, Hematuria. Denies: Frequency Musculoskeletal: Denies: Back pain, Extremity Pain Skin: Denies: Rash, Wounds Neurological: Denies: Headache, Weakness, Numbness Physical Exam Vital Signs/Narrative: Vital Signs Temp Pulse Resp BP Pulse Ox 07/06/19 08:17 98.2 F 87 18 147/83 H 98 Inital Vital Signs reviewed: Yes General: Well nourished, Well developed, No Acute Distress Head: Normocephalic, Atraumatic Eyes: Perrl, EOMI ENT: Moist mucous membranes, No rhinorrhea Neck: Supple, Nontender Cardiovascular: Regular rate, Regular rhythm, No murmurs Respiratory: No distress, CTA bilaterally, Chest nontender Abdomen: Soft, Nondistended, Normal bowel sounds, No masses, Tender - Mild, right middle abdomen/right flank, - - No pain at McBurney's point. Negative for: Guarding, Rebound tenderness, Pulsatile mass, Caldera's sign Back: Nontender, Normal Inspection. Negative for: CVA tenderness, Spinal tenderness Extremities: Nontender, No edema Skin: Normal color, No rash Neurological: Alert, Oriented x3, Cranial nerves II-XII grossly intact, Normal Strength, Normal Sensation Psychological: Normal affect, Normal Mood Diagnostic/Tx/Re-eval CT: Flank Clinical Impression(s) from Imaging Studies Abdomen/Pelvis CT 07/06/19 08:32 IMPRESSION: Stable nonobstructive right intrarenal calculi. No obstructive uropathy is seen at this time. Electronically Signed: Joel Ferraro, at 9:28 EST , Service support , Laboratory Data 07/06/19 07/06/19 07/06/19 08:48 08:48 09:48 WBC 6.2 RBC 4.92 Hgb 14.7 Hct 43.8 MCV 89.0 MCH 29.9 MCHC 33.6 RDW Std Deviation 38.3 RDW Coeff of Augustine 11.9 Plt Count 149 L MPV 10.6 Immature Gran % (Auto) 0.500 Neut % (Auto) 72.9 H Lymph % (Auto) 18.8 L Laurens % (Auto) 6.5 Eos % (Auto) 1.0 Baso % (Auto) 0.3 Absolute Neuts (auto) 4.5 Absolute Lymphs (auto) 1.16 Nucleated RBC % 0 Sodium 140 Potassium 4.4 Chloride 108 H Carbon Dioxide 31.0 Anion Gap 1 L BUN 10 Creatinine 0.96 Estim Creat Clear Calc 133.19 Est GFR (MDRD) Af Amer 120 Est GFR (MDRD) Non-Af 99 BUN/Creatinine Ratio 10.4 Glucose 103 Calcium 9.0 Urine Color Yellow Urine Clarity Sl. Cloudy Urine pH 7.0 Ur Specific Adams 1.010 Urine Protein Negative Urine Glucose (UA) Normal Urine Ketones Negative Urine Occult Blood 10 H Urine Nitrite Negative Urine Bilirubin Negative Urine Urobilinogen Normal Ur Leukocyte Esterase Negative Urine RBC 0-5 SEEN Urine WBC 0 SEEN Ur Squamous Epith Cells 0-5 SEEN Urine Bacteria RARE Urine Mucus 0 SEEN - Medical Decision Making Evaluated for less than 1 day of right flank pain. He has a history of kidney stones. He does have small amount of blood in his urine but no signs of infection. CT does show nonobstructing stones in the kidney but no obstructing stone. Patient felt like he did urinate out a stone earlier so is possible here he passed it. He is initially treated with IV fluids, Toradol and morphine as well as Zofran. On reevaluation he states he is feeling better. He is hemodynamically stable. His creatinine as well as his CBC and BMP are normal. He will be treated as a recently passed kidney stone. He is given urology to follow-up with as needed. He is given a work note for today and tomorrow per his request. Will discharged home with Motrin for pain control. Patient is counseled on signs and symptoms requiring return to the emergency room. Patient verbalizes agreement and understand this plan. Patient discharged home in stable and improved condition. ED Disposition - Plan for ED Patient: Disposition: Home or Assisted Living Diagnosis: Right flank pain Instructions: KIDNEY STONE, Passed Prescriptions: Ibuprofen [Motrin] 800 mg PO TID PRN PRN #20 tab PRN Reason: Pain Score 1-10/10 Prescription Printed Referrals: Aniyah Arechiga MD [Primary Care Provider] - Sohail Gomez MD [STAFF PHYSICIAN] -
[2019-07-06] MEDS: Morphine 4 MG/ML Syringe IV (08:48)
[2019-07-06] MEDS: Ketorolac 30 MG/ML Syringe IV (08:49)
[2019-07-06] MEDS: Ondansetron 4 MG/2 ML Vial IV (08:49)
[2019-07-06 08:54] LABS: Absolute Lymphocyte Count 1.16 X10^3/uL (0.83-4.51); Absolute Neutrophil Count 4.5 X10^3/uL (2.0-7.7); Basophil# 0.02 X10^3/uL; Basophil% 0.3 % (0-1); Eosinophil# 0.06 X10^3/uL; Hematocrit 43.8 % (40-54); Hemoglobin 14.7 g/dL (13.0-16.5); Lymphocyte # 1.16 X10^3/ul (4.0); Lymphocyte % 18.8 % (19-41); Mean Corp Hgb Conc 33.6 g/dL (32-36); Mean Corpuscular Hgb 29.9 pg (27.0-32.0); Mean Platelet Vol. 10.6 fl (6.2-12.0); Monocyte% 6.5 % (0-10); NRBC Flagged by Analyzer 0 % (0-5); Neutrophil % 72.9 % (47-70); Platelet Count 149 K/mm3 (150-450); RBC Distribution Width CV 11.9 % (11.6-14.6); RBC Distribution Width SD 38.3 fl (35.1-43.9); Red Blood Count 4.92 M/mm3 (4.6-6.2); White Blood Count 6.2 K/mm3 (4.4-11.0)
[2019-07-06 09:07] LABS: Anion Gap 1 (5-15); BUN 10 mg/dL (7-18); BUN/Creat Ratio 10.4 RATIO (10-20); Chloride 108 mmol/L (98-107); Creatinine, Serum 0.96 mg/dL (0.70-1.30); EST Glomerular Filtration Rate 99 mL/min (>60); Est Glom Filt Rate - Afr Amer 120 mL/min (>60); Estimated Creatinine Clearance 133.19 ml/min; Glucose 103 mg/dL (74-106); Potassium 4.4 mmol/L (3.5-5.1); Sodium Level 140 mmol/L (136-145)
[2019-07-06 09:36] VITALS: BP 128/73; PULSE 75; RESP 16; O2SAT 99
[2019-07-06 09:50] LABS: Mucous, Urine 0 SEEN /hpf (<or=2+); White Blood Cells 0 SEEN /hpf (0-5)
[2019-07-06 09:52] LABS: Color, Urine Yellow (Yellow); Glucose, Dipstick Normal (Normal); Ketone-Dipstick Negative (Negative); Leukocyte Esterase-Dipstick Negative /ul (Negative); Nitrite-Dipstick Negative (Negative); Occult Blood-Urine 10 /ul (Negative); Protein-Dipstick Negative (Negative); Urine Bilirubin Dipstick Negative (Negative); Urine Clarity Sl. Cloudy (Clear); Urine Urobilinogen Normal (Normal)
[2019-07-06 10:01] LABS: Red Blood Cells-Urine 0-5 SEEN /hpf (0-5); Squamous Epithelial Cells - UA 0-5 SEEN /hpf (0-5)
[2019-07-06 10:02] LABS: Bacteria RARE /hpf (None Seen)
[2019-07-06 10:39] VITALS: BP 134/80; PULSE 75; RESP 15; O2SAT 97
== END 2019-07-06 10:40 | disposition home or self-care (01) ==
PROVIDERS: Emergency Provider Emergency Medicine; PCP Internal Medicine
DX: R10.9 Unspecified abdominal pain (principal); N20.0 Calculus of kidney; Z87.442 Personal history of urinary calculi; Z88.0 Allergy status to penicillin; Z88.1 Allergy status to other antibiotic agents; Z88.6 Allergy status to analgesic agent; Z88.8 Allergy status to other drugs, medicaments and biological substances
CPT/HCPCS: 74176; 80048; 81001; 85025; 96374; 96375; 99283; A4216; J2405

== ENCOUNTER 2019-10-04 20:49 | Emergency (ER) | payer MEDICARE, MEDICAID, SELFPAY ==
[2019-10-04 20:50] VITALS: BP 167/98; PULSE 109; RESP 18; TEMP 36.4; O2SAT 99; BMI 44.9
--- NOTE | 2019-10-04 21:52 | ED.VIS.GI ---
History of Present Illness Chief Complaint: GI Bleed Narrative: Patient presenting for evaluation due to concern for rectal bleeding. Patient reports that over the course of about the last 3 to 4 weeks he has been noting some intermittent blood in his stool. He thought that it initially was associated with hemorrhoids, as he had some burning with wiping, but he states that today he had a large amount of blood in the toilet after having a bowel movement and was concerned so he came to the emergency department. Patient denies that he is having any sort of rectal pain or abdominal pain associated with this. He denies any fevers, chills, night sweats, unintended weight loss. He denies any personal or family history of inflammatory bowel disease. He denies any bleeding dyscrasia history. Review of systems otherwise negative. Past Medical History - Allergies and Home Meds Allergies/Adverse Reactions: Allergies acetaminophen [From Tylenol] Adverse Reaction (Verified 10/04/19 20:52) Unknown JUST DOESN'T WORK amoxicillin trihydrate [From Augmentin] Adverse Reaction (Verified 10/04/19 20:52) Vomiting ORAL ONLY diphenhydramine HCl [From Benadryl] Adverse Reaction (Verified 10/04/19 20:52) Other potassium clavulanate [From Augmentin] Adverse Reaction (Verified 10/04/19 20:52) Vomiting Primary Care Physician: Bakari Cotto MD [STAFF PHYSICIAN] - As soon as possible Prior records reviewed: Yes Past Medical History: None Surgical History: - - Lithotripsy Smoking Status: Never smoker Review of Systems All systems negative except as indicated General: Denies: Chills, Fever, Sweats Eyes: Denies: Visual changes - bilaterally, Diplopia ENT: Denies: Rhinorrhea, Sore throat Cardiovascular: Denies: Chest pain, Palpitations Respiratory: Denies: Dyspnea, Cough, Dyspnea on exertion Gastrointestinal: Reports: Hematochezia Genitourinary: Denies: Dysuria, Hematuria, Frequency Musculoskeletal: Denies: Back pain, Extremity Pain Skin: Denies: Rash, Wounds Neurological: Denies: Headache, Weakness, Numbness Physical Exam Vital Signs/Narrative: Vital Signs Temp Pulse Resp BP Pulse Ox 10/04/19 20:50 97.5 F L 109 H 18 167/98 H 99 General: Well nourished, Well developed, Obese, No Acute Distress Head: Normocephalic, Atraumatic Eyes: Perrl, EOMI ENT: Moist mucous membranes, No rhinorrhea Neck: Supple, Nontender Cardiovascular: Regular rate, Regular rhythm, No murmurs Respiratory: No distress, CTA bilaterally, Chest nontender Abdomen: Soft, Nontender, Nondistended, Normal bowel sounds Rectal: - - Some dried blood noted around the patient's anus, no evidence of active bleeding. No hemorrhoids are noted. Digital rectal exam is nontender with no evidence of masses, external or internal hemorrhoids, no active bleeding. Back: Nontender, Normal Inspection Extremities: Nontender, No edema Skin: Normal color, No rash Neurological: Alert, Oriented x3, Cranial nerves II-XII grossly intact, Normal Strength, Normal Sensation Psychological: Normal affect, Normal Mood Diagnostic/Tx/Re-eval - Medical Decision Making Patient presented due to concerns for rectal bleeding. Rectal exam does not really show any evidence of active bleeding, show some evidence of dried blood around the anus consistent with the patient having bleeding prior to arrival. He is well-appearing, does not have fever, does not have tachycardia, does not have signs of infection or anemia or other serious process that would require imaging or lab work. Most likely explanation for the patient's rectal bleeding is a ruptured hemorrhoid, but he is the appropriate age that this could be a presentation of inflammatory bowel disease. I will provide the patient with follow-up with general surgery for potential colonoscopy. I given signs and symptoms which return. ED Disposition - Plan for ED Patient: Disposition: Home or Assisted Living Diagnosis: Rectal bleeding Instructions: ED Hematochezia Stable Referrals: Bakari Cotto MD [STAFF PHYSICIAN] - As soon as possible
[2019-10-04 22:07] VITALS: BP 154/87; PULSE 88; RESP 16; O2SAT 99
== END 2019-10-04 22:07 | disposition home or self-care (01) ==
PROVIDERS: Emergency Provider Emergency Medicine; PCP Internal Medicine
DX: K92.1 Melena (principal); Z88.0 Allergy status to penicillin; Z88.1 Allergy status to other antibiotic agents; Z88.6 Allergy status to analgesic agent; Z88.8 Allergy status to other drugs, medicaments and biological substances
CPT/HCPCS: 99282; J7030

== ENCOUNTER 2019-10-20 13:38 | Emergency (ER) | payer MEDICARE, MEDICAID, SELFPAY ==
[2019-10-20 13:40] VITALS: BP 152/106; PULSE 111; RESP 16; TEMP 36.4; O2SAT 99; BMI 43.9
--- NOTE | 2019-10-20 13:49 | RAD_ITS ---
STUDY: X-RAY CHEST REASON FOR EXAM: Male, 29 years old. RIGHT SIDED CHEST PAIN, PAINFUL TO TAKE IN A DEEP BREATH TECHNIQUE: Frontal and lateral views COMPARISON: August 11, 2018. FINDINGS: The lungs are expanded. Questionable focal right mid lung infiltrate/atelectasis. Normal size heart. Normal mediastinum and kyle. Normal visualized pulmonary arteries. Normal visualized aortic arch and descending thoracic aorta. Normal visualized thoracic spine. Normal visualized ribs, clavicles, and shoulders. There is no demonstrated abnormality of the visualized soft tissue structures of the upper abdomen. RAD/Chest PA and Lateral IMPRESSION: Questionable focal right mid lung infiltrate/atelectasis. Electronically Signed: David Fowler DO at 14:24 EDT Tel [phone], Service support ,
--- NOTE | 2019-10-20 13:50 | ED.DCSUM_ITS ---
History of Present Illness Chief Complaint: Chest Other Informant: Patient Narrative: Patient presents to the emergency department with a progressively worsening right scapular right mid rib pain that wraps around to the front. States he has been working on his truck recently. Started off as just a mild discomfort now seems to be getting worse. He denies any direct trauma. He notes that the symptoms are worse when he moves his arm about penitentiary posteriorly and penitentiary across his chest. It is worse with palpation. He states if he takes a deep breath it is painful. He denies any ecchymosis. No fever no cough. No nausea vomiting. No abdominal pain Past Medical History - Allergies and Home Meds Allergies/Adverse Reactions: Allergies acetaminophen [From Tylenol] Adverse Reaction (Verified 10/20/19 13:39) Unknown JUST DOESN'T WORK amoxicillin trihydrate [From Augmentin] Adverse Reaction (Verified 10/20/19 13:39) Vomiting ORAL ONLY diphenhydramine HCl [From Benadryl] Adverse Reaction (Verified 10/20/19 13:39) Other potassium clavulanate [From Augmentin] Adverse Reaction (Verified 10/20/19 13:39) Vomiting Primary Care Physician: Aniyah Arechiga MD [Primary Care Provider] - Surgical History: - - Lithotripsy Smoking Status: Never smoker Review of Systems General: Denies: Chills, Fever, Sweats Eyes: Denies: Visual changes - bilaterally, Diplopia ENT: Denies: Rhinorrhea, Sore throat Cardiovascular: Reports: Chest pain. Denies: Palpitations Respiratory: Denies: Dyspnea, Cough, Dyspnea on exertion Gastrointestinal: Denies: Abdominal pain, Nausea, Vomiting, Diarrhea, Melena, Hematochezia Genitourinary: Denies: Dysuria, Hematuria, Frequency Musculoskeletal: Reports: Back pain. Denies: Extremity Pain Skin: Denies: Rash, Wounds Neurological: Denies: Headache, Weakness, Numbness Physical Exam Vital Signs/Narrative: Vital Signs Temp Pulse Resp BP Pulse Ox 10/20/19 13:40 97.6 F L 111 H 16 152/106 H 99 Inital Vital Signs reviewed: Yes General: Well nourished, Well developed, No Acute Distress Head: Normocephalic, Atraumatic Eyes: Perrl, EOMI ENT: Moist mucous membranes, No rhinorrhea Neck: Supple, Nontender Cardiovascular: Regular rate, Regular rhythm, No murmurs Respiratory: No distress, CTA bilaterally, Chest tenderness - Patient presents with tenderness to palpation just inferior to his scapula along the right mid thoracic ribs that wraps around anteriorly. Exacerbated by movement of the arm. There is no ecchymosis or deformities. No crepitance. Abdomen: Soft, Nontender, Nondistended, Normal bowel sounds Back: Nontender, Normal Inspection Extremities: Nontender, No edema Skin: Normal color, No rash Neurological: Alert, Oriented x3, Cranial nerves II-XII grossly intact, Normal Strength, Normal Sensation Psychological: Normal affect, Normal Mood Diagnostic/Tx/Re-eval Clinical Impression(s) from Imaging Studies Chest X-Ray 10/20/19 13:49 IMPRESSION: Questionable focal right mid lung infiltrate/atelectasis. Electronically Signed: David Fowler DO at 14:24 EDT Tel [phone], Service support , - EKG Initial EKG Interpretation: Sinus Rhythm - EKG demonstrates a sinus rhythm at a rate of 89. There is no ectopy or concerning features of ACS - Medical Decision Making Chest x-ray shows a questionable infiltrate in the right lung garcia. He has no fever no cough so I doubt that this would be an infiltrative process. However pulmonary infarct could be a possibility. I think it is more probable that is musculoskeletal. However we obtain a CTA of his chest for further evaluation. At this time the care of the patient will be checked out to the oncoming physician for check a CTA and labs and final disposition. ED Disposition - Plan for ED Patient: Referrals: Aniyah Arechiga MD [Primary Care Provider] -
--- NOTE | 2019-10-20 14:36 | CT_ITS ---
STUDY: CTA CHEST REASON FOR EXAM: Male, 29 years old. CHEST PAIN-RIGHT SIDE RADIATION DOSAGE (If Supplied By Facility): CTDIvol = ( 18.05 ) mGy, DLP = ( 679.81 ) mGycm TECHNIQUE: The examination was performed with the intravenous administration of 100 ML ISOVUE 370. Post-processing of the angiographic images was performed, with multiplanar reformation and 3D reconstruction. Individualized dose optimization techniques were used for this CT. COMPARISON: None. FINDINGS: The study is limited by patient motion. There is no evidence of pulmonary embolus. There is no evidence of thoracic aortic aneurysm or dissection. There is subsegmental atelectasis along the minor fissure in the right upper lobe. There are no pulmonary infiltrates or pleural effusions. The central airways are patent. There is no pneumothorax. The heart and pericardium are within normal limits. There is no thoracic lymphadenopathy. Images through the upper abdomen demonstrate no significant abnormality. There are no destructive osseous lesions. CT/CTA Chest W/WO Contrast IMPRESSION: No evidence of pulmonary embolus or other acute thoracic disease. Electronically Signed: Kevin Bob, at 15:53 EDT Tel , Service support ,
--- NOTE | 2019-10-20 14:36 | EKG12_ITS ---
Test Reason : DYSRHYTHMIA Blood Pressure : / mmHG Vent. Rate : 089 BPM Atrial Rate : 089 BPM P-R Int : 144 ms QRS Dur : 100 ms QT Int : 342 ms P-R-T Axes : 029 -05 -03 degrees QTc Int : 416 ms Normal sinus rhythm with sinus arrhythmia Normal ECG Confirmed by AYAAN MARTINEZ, JATINDER ([id number]), senior technical editor ANGELINE MATA ([id number]) on 10/23/2019 10:38:10 AM Referred By: Confirmed By:JATINDER KUO MD
[2019-10-20 14:55] LABS: Absolute Lymphocyte Count 1.13 X10^3/uL (0.83-4.51); Absolute Neutrophil Count 6.3 X10^3/uL (2.0-7.7); Basophil# 0.02 X10^3/uL; Basophil% 0.2 % (0-1); Eosinophil# 0.04 X10^3/uL; Eosinophils% 0.5 % (0-5); Hematocrit 43.9 % (40-54); Hemoglobin 14.9 g/dL (13.0-16.5); Lymphocyte # 1.13 X10^3/ul (4.0); Lymphocyte % 13.7 % (19-41); Mean Corp Hgb Conc 33.9 g/dL (32-36); Mean Corpuscular Hgb 30.7 pg (27.0-32.0); Mean Corpuscular Volume 90.5 fL (80-94); Mean Platelet Vol. 9.9 fl (6.2-12.0); Monocyte# 0.67 X10^3/uL; Monocyte% 8.1 % (0-10); NRBC Flagged by Analyzer 0 % (0-5); Neutrophil # 6.32 X10^3/uL (2.7-7.7); Neutrophil % 76.9 % (47-70); Platelet Count 141 K/mm3 (150-450); RBC Distribution Width CV 12.3 % (11.6-14.6); RBC Distribution Width SD 40.3 fl (35.1-43.9); Red Blood Count 4.85 M/mm3 (4.6-6.2); White Blood Count 8.2 K/mm3 (4.4-11.0)
[2019-10-20 15:07] VITALS: BP 130/76; PULSE 92; RESP 15; O2SAT 99
[2019-10-20 15:26] LABS: Anion Gap 5 (5-15); BUN 12 mg/dL (7-18); BUN/Creat Ratio 13.1 RATIO (10-20); Calcium,Total 9.1 mg/dL (8.5-10.1); Chloride 107 mmol/L (98-107); Creatinine, Serum 0.92 mg/dL (0.70-1.30); EST Glomerular Filtration Rate 104 mL/min (>60); Est Glom Filt Rate - Afr Amer 125 mL/min (>60); Estimated Creatinine Clearance 137.74 ml/min; Glucose 92 mg/dL (74-106); Potassium 4.3 mmol/L (3.5-5.1); Sodium Level 140 mmol/L (136-145)
--- NOTE | 2019-10-20 15:59 | ED.DCSUM_ITS ---
- ER Visit Summary Date of Service: 10/20/19 This patient was checked out to me with labs and CT pending. Test Results: Clinical Impression(s) from Imaging Studies Chest X-Ray 10/20/19 13:49 IMPRESSION: Questionable focal right mid lung infiltrate/atelectasis. Electronically Signed: David Fowler DO at 14:24 EDT Tel [phone], Service support , Chest CTA 10/20/19 14:36 IMPRESSION: No evidence of pulmonary embolus or other acute thoracic disease. Electronically Signed: Kevin Bob, at 15:53 EDT Tel , Service support , Laboratory Data 10/20/19 10/20/19 14:47 14:47 WBC 8.2 RBC 4.85 Hgb 14.9 Hct 43.9 MCV 90.5 MCH 30.7 MCHC 33.9 RDW Std Deviation 40.3 RDW Coeff of Augustine 12.3 Plt Count 141 L MPV 9.9 Immature Gran % (Auto) 0.600 Neut % (Auto) 76.9 H Lymph % (Auto) 13.7 L Blair % (Auto) 8.1 Eos % (Auto) 0.5 Baso % (Auto) 0.2 Absolute Neuts (auto) 6.3 Absolute Lymphs (auto) 1.13 Nucleated RBC % 0 Sodium 140 Potassium 4.3 Chloride 107 Carbon Dioxide 28.0 Anion Gap 5 BUN 12 Creatinine 0.92 Estim Creat Clear Calc 137.74 Est GFR (MDRD) Af Amer 125 Est GFR (MDRD) Non-Af 104 BUN/Creatinine Ratio 13.1 Glucose 92 Calcium 9.1 Troponin I < 0.015 Clinical Impression(s) from Imaging Studies Chest X-Ray 10/20/19 13:49 IMPRESSION: Questionable focal right mid lung infiltrate/atelectasis. Electronically Signed: David Fowler DO at 14:24 EDT Tel [phone], Service support , Chest CTA 10/20/19 14:36 IMPRESSION: No evidence of pulmonary embolus or other acute thoracic disease. Electronically Signed: Kevin Bob, at 15:53 EDT Tel , Service support , Emergency Department Course and Treatment: Patient is resting comfortably without complaint. Treatment Plan: Patient will be discharged with symptomatic care. Use Tylenol and/or ibuprofen as needed for pain. Follow-up with his primary care physician in 1 week if not improving. Return to the emergency department for any worsening symptoms. Disposition: To home in improved and stable condition. Impression: 1. Atypical chest pain. This note was generated with [employer] dictation software. It may contain incorrect words, spelling, and punctuation that were not noted in review of the chart prior to signing ED Disposition - Plan for ED Patient: Instructions: ED Chest Pain Atypical Unkn Cause Referrals: Aniyah Arechiga MD [Primary Care Provider] - 1 Week if not improving
[2019-10-20 16:16] VITALS: BP 132/78; PULSE 82; RESP 16; O2SAT 99
== END 2019-10-20 16:16 | disposition home or self-care (01) ==
LOC: ED 14:24
PROVIDERS: Emergency Provider Emergency Medicine; PCP Internal Medicine
DX: R07.89 Other chest pain (principal); Z88.0 Allergy status to penicillin; Z88.1 Allergy status to other antibiotic agents; Z88.6 Allergy status to analgesic agent; Z88.8 Allergy status to other drugs, medicaments and biological substances
CPT/HCPCS: 71046; 71275; 80048; 84484; 85025; 93005; 99284; Q9967; A4216

== ENCOUNTER 2020-05-06 06:53 | Emergency (ER) | payer MEDICARE, MEDICAID, SELFPAY ==
[2020-05-06 06:55] VITALS: BP 119/75; PULSE 86; RESP 16; TEMP 36.4; O2SAT 100; BMI 48.8
--- NOTE | 2020-05-06 07:09 | ED.DCSUM_ITS ---
- ER Visit Summary Date of Service: 05/06/20 Chief Complaint: [Right hip pain] History of Present Illness: The patient is a 29 M [presents to the emergency department with pain in his right hip that started when he woke up this morning. He had some mild discomfort last evening before going to bed. Patient attributes it to his history of hip dysplasia. Patient states that he started new job last evening which does cause him to walk a little bit. He does more repetitive motions with his upper extremities. Patient has had similar pain in the past but just not as severe. He rates his pain currently 9 out of 10. Patient denies any abdominal pain. He denies any pain in his back or pain rating down his leg. He describes the pain is in his right groin which he has had in the past. She denies any testicular pain. He does have history of kidney stones and this feels different. Pain is positional. Patient has not had any direct trauma.] Physical Examination: [HEENT-PERRLA, EOMI. Cranial nerves II through XII grossly intact. TMs clear. Mucous membranes moist. No adenopathy. Cardiovascular-regular rate and rhythm without murmur or ectopy Lungs-clear to auscultation, chest wall stable without crepitus or subcu emphysema Abdomen-normoactive bowel sounds, soft, nontender, no rebound or rigidity, no peritoneal signs. Extremities-intact ?4, normal range of motion, normal pulses, atraumatic. Right hip-no significant tenderness over the hip joint itself. Patient does have tenderness over the right groin that reproduces pain. No masses palpated. Neurovascularly intact distally. Patient does have discomfort with flexion at the hip.] Test Results: [None indicated] Emergency Department Course and Treatment: [] Treatment Plan: [Patient will be started on naproxen. He refused crutches. Patient also given a prescription for few [place] for severe pain. He will be given work restrictions. Patient advised to follow-up with primary care physician in 5 to 7 days. Patient to return if worsening pain, inability to ambulate, or condition should worsen anyway.] Disposition: [Discharged home in stable condition] Impression: [Right hip/groin strain] This note was generated with [employer] software. It may contain incorrect words, spelling, and punctuation that were not noted in review of the chart prior to signing ED Disposition - Plan for ED Patient: Referrals: Aniyah Arechiga MD [Primary Care Provider] -
--- NOTE | 2020-05-06 07:12 | ED.DEP ---
ED Disposition - Plan for ED Patient: Instructions: ED Groin Strain, ED Hip Strain Prescriptions: Naproxen [Naprosyn] 500 mg PO BID PRN #20 tab Prescription Printed Hydrocodone Bitart/Apap 5-325 [[place] 5MG-325MG] 1 tab PO Q4H PRN PRN 2 Days #10 tab PRN Reason: Pain Prescription Printed Referrals: Aniyah Arechiga MD [Primary Care Provider] - 5-7 Days
== END 2020-05-06 07:27 | disposition home or self-care (01) ==
LOC: ED 07:17
PROVIDERS: Emergency Provider Emergency Medicine; PCP Internal Medicine
DX: M25.551 Pain in right hip (principal); S39.011A Strain of muscle, fascia and tendon of abdomen, initial encounter; X50.3XXA Overexertion from repetitive movements, initial encounter; Y93.89 Activity, other specified; Y92.89 Other specified places as the place of occurrence of the external cause; Z87.442 Personal history of urinary calculi
CPT/HCPCS: 99282

== ENCOUNTER 2020-07-18 05:52 | Emergency (ER) | payer MEDICARE, MEDICAID, SELFPAY ==
[2020-07-18 05:53] VITALS: PULSE 110; RESP 16; TEMP 36.6; O2SAT 98; BMI 42.1
--- NOTE | 2020-07-18 05:56 | ED.VIS.GEN ---
History of Present Illness Chief Complaint: Nausea/Vomiting Informant: Patient Narrative: 29-year-old male with no significant past medical history presents with concern for vomiting and diarrhea. States is been present over the past 6 hours. States he feels like it something that he ate. He did have pizza rolls for dinner. Nonbloody or nonbilious vomiting. Denies any abdominal pain. Denies any fever, chills, chest pain, shortness of breath, cough. Denies any marijuana abuse. Past Medical History - Allergies and Home Meds Allergies/Adverse Reactions: Allergies acetaminophen [From Tylenol] Adverse Reaction (Verified 07/18/20 05:57) Unknown JUST DOESN'T WORK amoxicillin trihydrate [From Augmentin] Adverse Reaction (Verified 07/18/20 05:57) Vomiting ORAL ONLY diphenhydramine HCl [From Benadryl] Adverse Reaction (Verified 07/18/20 05:57) Other potassium clavulanate [From Augmentin] Adverse Reaction (Verified 07/18/20 05:57) Vomiting Primary Care Physician: Aniyah Arechiga MD [Primary Care Provider] - Prior records reviewed: Yes Past Medical History: None Surgical History: - - Lithotripsy Lives: Alone Smoking Status: Never smoker Alcohol: Rare Drugs: None Review of Systems General: Denies: Chills, Fever, Sweats Eyes: Denies: Visual changes - bilaterally, Diplopia ENT: Denies: Rhinorrhea, Sore throat Cardiovascular: Denies: Chest pain, Palpitations Respiratory: Denies: Dyspnea, Cough, Dyspnea on exertion Gastrointestinal: Reports: Nausea, Vomiting, Diarrhea. Denies: Abdominal pain, Melena, Hematochezia Genitourinary: Denies: Dysuria, Hematuria, Frequency Musculoskeletal: Denies: Back pain, Extremity Pain Skin: Denies: Rash, Wounds Neurological: Denies: Headache, Weakness, Numbness Physical Exam Vital Signs/Narrative: Vital Signs Temp Pulse Resp Pulse Ox 07/18/20 05:53 97.9 F 110 H 16 98 Inital Vital Signs reviewed: Yes General: Well nourished, Well developed, No Acute Distress Head: Normocephalic, Atraumatic Eyes: Perrl, EOMI ENT: Moist mucous membranes, No rhinorrhea Neck: Supple, Nontender Cardiovascular: Regular rate, Regular rhythm, No murmurs Respiratory: No distress, CTA bilaterally, Chest nontender Abdomen: Soft, Nontender, Nondistended, Normal bowel sounds Back: Nontender, Normal Inspection Extremities: Nontender, No edema Skin: Normal color, No rash Neurological: Alert, Oriented x3, Cranial nerves II-XII grossly intact, Normal Strength, Normal Sensation Psychological: Normal affect, Normal Mood Diagnostic/Tx/Re-eval Laboratory Data 07/18/20 07/18/20 06:05 06:05 WBC 8.0 RBC 5.27 Hgb 16.2 Hct 46.9 MCV 89.0 MCH 30.7 MCHC 34.5 RDW Std Deviation 39.3 RDW Coeff of Augustine 12.0 Plt Count 127 L MPV 10.4 Immature Gran % (Auto) 0.400 Neut % (Auto) 90.1 H Lymph % (Auto) 3.0 L [place] % (Auto) 5.9 Eos % (Auto) 0.5 Baso % (Auto) 0.1 Absolute Neuts (auto) 7.2 Absolute Lymphs (auto) 0.24 L Nucleated RBC % 0 Differential Comment SCANNED Sodium 138 Potassium 4.2 Chloride 106 Carbon Dioxide 29.0 Anion Gap 3 L BUN 12 Creatinine 1.05 Estim Creat Clear Calc 124.07 Est GFR (MDRD) Af Amer 107 Est GFR (MDRD) Non-Af 88 BUN/Creatinine Ratio 11.4 Glucose 128 H Calcium 8.7 Total Bilirubin 0.70 AST 10 L ALT 22 Alkaline Phosphatase 117 Total Protein 7.5 Albumin 4.0 Globulin 3.5 Albumin/Globulin Ratio 1.1 Lipase 64 L - Medical Decision Making Patient appears well and nontoxic. Initially tachycardic. Normotensive. Benign abdominal exam. Lab work within normal limits. Patient given 1 L of normal saline and Zofran. Feeling much improved. Will be given Zofran and Pepcid for home. Asked to return for new or worsening symptoms. Patient agreeable and stable at time of discharge. Impression: 1. Nausea and vomiting 2. Diarrhea ED Disposition - Plan for ED Patient: Disposition: Home or Assisted Living Instructions: ED Vomiting and Diarrhea ... Prescriptions: Famotidine [Pepcid] 20 mg PO BID #28 tablet Transmission Status: Pending to [id number] Ondansetron [Zofran Odt] 4 mg PO Q8H PRN PRN #12 tablet PRN Reason: Nausea Transmission Status: Pending to [id number] Referrals: Aniyah Arechiga MD [Primary Care Provider] - 2 Days
[2020-07-18] MEDS: 0.9% Normal Saline 1,000 ML 1000 ML IV (06:07)
[2020-07-18] MEDS: Ondansetron 4 MG/2 ML Vial IV (06:07)
[2020-07-18 06:14] LABS: Absolute Lymphocyte Count 0.24 X10^3/uL (0.83-4.51); Absolute Neutrophil Count 7.2 X10^3/uL (2.0-7.7); Basophil# 0.01 X10^3/uL; Basophil% 0.1 % (0-1); Differential Indicated SCAN CRITERIA MET; Eosinophil# 0.04 X10^3/uL; Eosinophils% 0.5 % (0-5); Hematocrit 46.9 % (40-54); Hemoglobin 16.2 g/dL (13.0-16.5); Lymphocyte # 0.24 X10^3/ul (4.0); Mean Corp Hgb Conc 34.5 g/dL (32-36); Mean Corpuscular Hgb 30.7 pg (27.0-32.0); Mean Platelet Vol. 10.4 fl (6.2-12.0); Monocyte# 0.47 X10^3/uL; Monocyte% 5.9 % (0-10); NRBC Flagged by Analyzer 0 % (0-5); Neutrophil # 7.18 X10^3/uL (2.7-7.7); Neutrophil % 90.1 % (47-70); POSITIVE DIFFERENTIAL YES; Platelet Count 127 K/mm3 (150-450); RBC Distribution Width SD 39.3 fl (35.1-43.9); Red Blood Count 5.27 M/mm3 (4.6-6.2)
[2020-07-18 06:29] LABS: Differential Comment SCANNED
[2020-07-18 06:30] LABS: ALB/GLOB Ratio 1.1 RATIO (0.9-2.4); AST(SGOT) 10 U/L (15-37); Alanine Aminotransfer ALT/SGPT 22 U/L (16-61); Alkaline Phosphatase 117 U/L (45-117); Anion Gap 3 (5-15); BUN 12 mg/dL (7-18); BUN/Creat Ratio 11.4 RATIO (10-20); Calcium,Total 8.7 mg/dL (8.5-10.1); Chloride 106 mmol/L (98-107); Creatinine, Serum 1.05 mg/dL (0.70-1.30); EST Glomerular Filtration Rate 88 mL/min (>60); Est Glom Filt Rate - Afr Amer 107 mL/min (>60); Estimated Creatinine Clearance 124.07 ml/min; Globulin 3.5 g/dL (2.2-4.2); Glucose 128 mg/dL (74-106); Lipase 64 U/L (73-393); Potassium 4.2 mmol/L (3.5-5.1); Protein, Total 7.5 g/dL (6.4-8.2); Sodium Level 138 mmol/L (136-145)
[2020-07-18 07:28] VITALS: BP 125/76; PULSE 108; RESP 16; O2SAT 100
--- NOTE | 2020-07-18 07:29 | ED.RN ---
REVIEWED D/C INSTRUCTIONS, FOLLOW UP CARE, PRESCRIPTIONS, AND S/S THAT WOULD WARRANT A RETURN TO THE ED WITH PT. PT VERBALIZED AN UNDERSTANDING AND DENIES FURTHER QUESTIONS FOR THIS RN. PT SKIN P/W/D, RESP EVEN AND UNLABORED, PT A&O X 3, NO DISTRESS NOTED. PT AMBULATED OUT OF ED, GAIT STEADY.
== END 2020-07-18 07:30 | disposition home or self-care (01) ==
PROVIDERS: Emergency Provider Emergency Medicine; PCP Internal Medicine
DX: R11.2 Nausea with vomiting, unspecified (principal); R19.7 Diarrhea, unspecified; Z88.0 Allergy status to penicillin; Z88.1 Allergy status to other antibiotic agents; Z88.6 Allergy status to analgesic agent; Z88.8 Allergy status to other drugs, medicaments and biological substances
CPT/HCPCS: 80053; 83690; 85025; 96361; 96374; 99283; J7030; A4216; J2405

== ENCOUNTER 2021-01-25 16:37 | Emergency (ER) | payer MEDICARE, MEDICAID, SELFPAY ==
[2021-01-25 16:37] VITALS: BP 149/88; PULSE 97; RESP 18; TEMP 36.6; O2SAT 99; BMI 45.7
--- NOTE | 2021-01-25 17:10 | EX.ED.VIS.HA ---
HPI History of Present Illness Chief Complaint: Headache Informant: patient Onset/Context/Timing Onset: Today Context: Gradual Timing: Continuous Current Severity: Mild Maximum Severity: Moderate Associated Symptoms/Injury Associated Symptoms: Positive for Preceding Aura and Photophobia; Negative for Fever, Nausea, Vomiting, Sore Throat, Sinus Pressure, Numbness, Tingling, Visual Changes, Blurred Vision and Visual Loss Injury - LOWERY: Negative for Direct Trauma, Fall and Assault Narrative Narrative: 30-year-old male history of migraine headaches. Said he had onset of typical migraine headache for him 1230 today. He denies nausea or vomiting. No diarrhea. No fever. He is on no blood thinners. He denies any trauma. Patient states it is usually left-sided. Not throat was today. He does have associated photophobia. Denies any visual change. Patient's had prior CTA head and neck which was negative. There is no family history of intracranial bleeds or aneurysms. Prior similar symptoms: Yes Recent Illness/Hospitalization: No PFSH PFSH Medical History Kidney stone Medical History no medical history Home Medications melatonin 10 mg PO QHS 07/18/20 [History Last Taken Unknown] sumatriptan succinate [Imitrex] See Rx Instructions .ROUTE .COMPLEX #10 tab 01/25/21 [Rx Last Taken Unknown] Allergy/AdvReac Type Severity Reaction Status Date / Time acetaminophen [From Tylenol] AdvReac Unknown Verified 01/25/21 16:39 amoxicillin trihydrate AdvReac Vomiting Verified 01/25/21 16:39 [From Augmentin] diphenhydramine HCl AdvReac Other Verified 01/25/21 16:39 [From Benadryl] potassium clavulanate AdvReac Vomiting Verified 01/25/21 16:39 [From Augmentin] Social History Smoking Status: Never smoker ROS ROS ED ROS Narrative Headache. Review of Systems ROS Unobtainable: Denies due to encephalopathy Constitutional Constitutional ED: Denies chills or fever(s) Eyes Eyes: Denies change in vision ENT ENT ED: Denies ear pain or sore throat Cardiovascular Cardiovascular: Denies chest pain Respiratory/Chest Respiratory/Chest: Denies dyspnea Gastrointestinal Gastrointestinal: Denies abdominal pain, diarrhea, nausea or vomiting Genitourinary Genitourinary ED: Denies dysuria Musculoskeletal Musculoskeletal: Denies myalgias Integumentary Denies rash Neurologic Neurologic: Reports headache(s) Psychiatric Psychiatric: Denies depression Endocrine Endocrinology: Denies polyuria Hematologic/Lymphatic Hematologic/Lymphatic: Denies easy bruising Allergic/Immunologic Allergic/Immunologic ED: Denies urticaria EXAM Physical Exam Narrative Exam Narrative: 30-year-old male vital signs stable afebrile. Initial blood pressure 149/88. Patient sitting up in a darkened room. HEENT exam unremarkable. Pupils are reactive light extra motions are intact. No facial droop normal speech. No trauma. Neck nontender no meningismus. Full range of motion. Lungs clear to auscultation heart regular rate and rhythm no murmur. Abdomen soft nontender. Moving all 4 extremities. Neurovascular intact. Normal ophthalmic medical technician strength. Bilaterally. Normal dorsi plantar flexion. Neurologic exam normal. He is awake alert oriented. He knows day month, year he knows president 9 states. He has normal speech. Fingertip to nose and [id number] within normal limits. He gets up and ambulates without any difficulty. His NIH score is 0. Const Vital Signs: 01/25/21 16:37 Temperature 97.8 F Temperature Source Temporal Pulse Rate 97 Respiratory Rate 18 Blood Pressure 149/88 H Blood Pressure Mean 108 Pulse Ox 99 Positive well nourished and well developed; Negative for obese, cachectic, contractures or unkempt General Appearance ED: well developed and NAD; Negative for unkempt, cachectic, contractures, cyanotic or diaphoretic Nutritional Appearance: Negative for cachectic or obese HEENT Reports normocephalic and moist mucous membranes atraumatic; Negative for trauma or tenderness Eyes PERRL and EOMs intact bilaterally General Eye ED: Negative for pale conjunctiva or scleral icterus Neck no lymphadenopathy, supple, no meningeal signs and no JVD General: Negative for tenderness Resp normal respiratory effort Auscultation: Negative for rales, rhonchi or wheezes Cardio regular rate, regular rhythm, S1 normal heart sound, S2 normal heart sound and no murmurs GI non-tender and non-distended Auscultation: normoactive bowel sounds Palpation: soft; Negative for firm, tender, guarding or rigid Back/Spine no CVA tenderness General Back: Negative for CVA tenderness Extremity normal to inspection and full ROM General Extremety ED: Negative for edema or tenderness General Extremity: Negative for edema Neuro oriented x3, CN's II-XII intact bilaterally and no sensory deficits noted Neuro Narrative: Walks without any difficulty. Sensorium / Orientation: awake, alert, oriented to person, oriented to place and oriented to time; Negative for orientation impaired, lethargic or stuporous Coordination / Balance: [id number] test normal and [id number] test normal Motor Exam: strength 5/5 throughout Psych mental status grossly normal Appearance: Negative for unkempt Attitude: No agitated Mood & Affect: Negative for depressed, anxious or tearful Skin Lesions: no lesions Rashes: no rashes MDM MDM MDM Narrative Medical decision making narrative: 30 male with headache consistent with migraine. He states is getting better and he does not mind pain. He has had prior imaging which was negative. His neurologic exam is completely normal. He is comfortable being discharged home. I will write him for Imitrex at home. Discharge Plan Triage Chief Complaint: Headache ED Provider: Tito Kam Dx/Rx/DC Orders Clinical Impression: Headache, migraine Instructions: ED, Migraine (Classical) Prescriptions: New sumatriptan succinate [Imitrex] 25 mg tablet See Rx Instructions .ROUTE .COMPLEX Qty: 10 RF: 0 No Action melatonin 10 MG tablet 10 mg PO QHS RF: 0 Primary Care Provider: Aniyha Arechiga Referrals: Aniyah Arechiga MD [Primary Care Provider] - 1-2 Days if not improving Activity Restrictions/Additional Instructions: Plenty of fluids and rest. Tylenol and Motrin for pain. Follow-up with your doctor as needed. Imitrex as needed if develop recurrent headaches. Disposition Disposition: Home, Self Care
== END 2021-01-25 17:36 | disposition home or self-care (01) ==
LOC: ED 17:22
PROVIDERS: Emergency Provider Emergency Medicine; PCP Internal Medicine
DX: G43.909 Migraine, unspecified, not intractable, without status migrainosus (principal)
CPT/HCPCS: 99281; 99282

== ENCOUNTER 2021-03-02 19:22 | Emergency (ER) | payer MEDICARE, MEDICAID, SELFPAY ==
[2021-03-02 19:23] VITALS: BP 162/102; PULSE 80; RESP 16; TEMP 35.7; O2SAT 97; BMI 46.9
--- NOTE | 2021-03-02 21:43 | CT_ITS ---
HISTORY: Kidney Stone TECHNIQUE: Multiple axial images were obtained of the abdomen and pelvis without oral or IV contrast. Coronal and sagittal reformats obtained. A radiation dose optimization technique was used for this scan. COMPARISON: July 06, 2019 FINDINGS: # of images incl. paperwork: [id number] LUNG BASES: Unremarkable. LIVER T BILIARY TRACT: Unremarkable gallbladder. No acute hepatic finding. ADRENAL GLANDS: Unremarkable. SPLEEN: Unremarkable. PANCREAS: Unremarkable. KIDNEYS/URETERS/BLADDER: Multiple nonobstructive right renal stones up to 5 mm in size. No left nephrolithiasis. No hydronephrosis. Minimal right perinephric stranding without change from July 06, 2019. Normal ureters without current stone. Decompressed bladder without intraluminal stone or surrounding inflammation. Unremarkable ureters and bladder. LYMPH NODES: No suspicious adenopathy. STOMACH, SMALL AND LARGE BOWEL: No acute gastric finding. No small bowel obstruction or gross wall thickening. Normal appendix. No acute colonic finding. ASCITES/FREE AIR: No free fluid or free air. AORTA: Unremarkable. PELVIS: Small prostatic calcification. MUSCULOSKELETAL: No acute osseous finding. Minimal fat-containing umbilical hernia without inflammation. CT/Abdomen/Pelvis without Cont IMPRESSION: Redemonstration of right renal nonobstructing stones. No hydronephrosis or current ureteral stone. No acute renal finding Individualized dose optimization techniques were used for this CT. at 2211 Reported and signed by: Vamsi Owens MD Electronically Signed: Vamsi Owens MD at 22:09 EDT Tel , Service support ,
[2021-03-02 21:51] LABS: Bacteria 0 SEEN /hpf (None Seen); Mucous, Urine 0 SEEN /hpf (<or=2+); Red Blood Cells-Urine 0 SEEN /hpf (0-5); Squamous Epithelial Cells - UA 0 SEEN /hpf (0-5)
[2021-03-02] MEDS: Ketorolac 30 MG/ML Syringe IV (21:51)
[2021-03-02] MEDS: Ondansetron 4 MG/2 ML Vial IV (21:51)
[2021-03-02 21:52] LABS: Color, Urine Yellow (Yellow); Glucose, Dipstick Normal (Normal); Ketone-Dipstick Negative (Negative); Leukocyte Esterase-Dipstick Negative /ul (Negative); Nitrite-Dipstick Negative (Negative); Occult Blood-Urine Negative /ul (Negative); Protein-Dipstick 15 mg/dl (Negative); Urine Bilirubin Dipstick Negative (Negative); Urine Clarity Clear (Clear); Urine Urobilinogen Normal (Normal)
[2021-03-02 21:59] LABS: White Blood Cells 0-5 SEEN /hpf (0-5)
--- NOTE | 2021-03-02 22:12 | EDS_ITS ---
HPI HPI - GI History of Present Illness Chief Complaint: Flank Pain Informant: patient Abdominal Pain/Flank Pain Onset: Days (3) Context: Sudden Onset Timing: Continuous and Waxes and wanes Quality: Aching Location: Right Flank Current Severity: Moderate Maximum Severity: Moderate Worsened by: Nothing Relieved by: Nothing Nausea/Vomiting/Emesis GI Symptom: Positive for Nausea; Negative for Vomiting Diarrhea/Melena/Hematochezia GI Symptom: Negative for Diarrhea, Melena and Hematochezia Associated Symptoms Associated Symptoms: Positive for Frequency; Negative for Dysuria, Hematuria and Urgency Narrative Narrative: Patient presents with what feels like kidney stone pain in his right flank. Has been there for 3 days, it eased off a little while so he did not come in but then got worse. He has needed lithotripsy in the past. He used to have a urologist elsewhere but he retired. He has had no hematuria but he has had some difficulty urinating, and feels like he needs to go but then he cannot go very much. [facility] Medical History (Updated 03/03/21 @ 00:[address] Nestor Leong MD) Kidney stone Home Medications melatonin 10 mg PO QHS PRN 07/18/20 [History Last Taken Unknown] sumatriptan succinate [Imitrex] See Rx Instructions .ROUTE .COMPLEX #10 tab 01/25/21 [Rx Last Taken Unknown] Allergy/AdvReac Type Severity Reaction Status Date / Time acetaminophen [From Tylenol] AdvReac Unknown Verified 03/02/21 21:25 amoxicillin trihydrate AdvReac Vomiting Verified 03/02/21 21:25 [From Augmentin] diphenhydramine HCl AdvReac Other Verified 03/02/21 21:25 [From Benadryl] potassium clavulanate AdvReac Vomiting Verified 03/02/21 21:25 [From Augmentin] Surgical History H/O lithotripsy Social History Smoking Status: Never smoker ROS ROS ED Constitutional Constitutional ED: Denies chills or fever(s) Eyes Eyes: Denies change in vision or diplopia ENT ENT ED: Denies rhinorrhea or sore throat Cardiovascular Cardiovascular: Denies chest pain or palpitations Respiratory/Chest Respiratory/Chest: Denies cough or dyspnea Gastrointestinal Gastrointestinal: Reports abdominal pain and nausea; Denies diarrhea or vomiting Genitourinary Genitourinary ED: Denies dysuria or hematuria Musculoskeletal Musculoskeletal: Reports back pain; Denies neck pain Integumentary Denies abscess or rash Neurologic Neurologic: Denies headache(s), paresthesias or weakness Psychiatric Psychiatric: Denies anxiety or suicidal thoughts EXAM Physical Exam Const Vital Signs: 03/02/21 19:23 03/02/21 23:00 Temperature 96.3 F L Temperature Source Temporal Pulse Rate 80 81 Respiratory Rate 16 18 Blood Pressure 162/102 H 128/72 H Blood Pressure Mean 122 90 Pulse Ox 97 99 Oxygen Delivery Method Room Air Positive well nourished, well developed and obese General Appearance ED: well developed and NAD Nutritional Appearance: obese HEENT Reports moist mucous membranes normocephalic and atraumatic Eyes PERRL and EOMs intact bilaterally Neck full ROM and supple Resp normal respiratory effort and clear to auscultation bilaterally Cardio regular rate, regular rhythm and no murmurs GI non-tender and non-distended Auscultation: normoactive bowel sounds Palpation: soft Back/Spine General Back: CVA tenderness right and other FROM Extremity normal to inspection General Extremety ED: Negative for edema, pulses abnormal or tenderness General Extremity: Negative for edema or pulses abnormal Neuro oriented x3, CN's II-XII intact bilaterally and no sensory deficits noted Sensorium / Orientation: awake and alert Motor Exam: strength 5/5 throughout Skin no rashes or lesions noted and no wounds MDM MDM MDM Narrative Medical decision making narrative: After Zofran and Toradol he is feeling better. His urinalysis is unremarkable without blood, he has some nonobstructing right renal stones but no ureteral stone. It is possible that he passed 1. He was reassured and discharged in stable condition with a referral to urology in case he needs it in the future. Lab Data Attestation: I reviewed the patient's lab results. Labs: Laboratory Results - last 24 hr 03/02/21 21:25 Urine Color Yellow Urine Clarity Clear Urine pH 6.0 Ur Specific [place] 1.020 Urine Protein 15 H Urine Glucose (UA) Normal Urine Ketones Negative Urine Occult Blood Negative Urine Nitrite Negative Urine Bilirubin Negative Urine Urobilinogen Normal Ur Leukocyte Esterase Negative Urine RBC 0 SEEN Urine WBC 0-5 SEEN Ur Squamous Epith Cells 0 SEEN Urine Bacteria 0 SEEN Urine Mucus 0 SEEN Radiography Diagnostic Testing: Clinical Impression(s) from Imaging Studies Abdomen/Pelvis CT 03/02/21 21:43 IMPRESSION: Redemonstration of right renal nonobstructing stones. No hydronephrosis or current ureteral stone. No acute renal finding Individualized dose optimization techniques were used for this CT. at 2211 Reported and signed by: Vamsi Owens MD Electronically Signed: Vamsi Owens MD at 22:09 EDT Tel , Service support , Discharge Plan Triage Chief Complaint: Flank Pain ED Provider: Nestor Leong Dx/Rx/DC Orders Clinical Impression: Acute right flank pain, Right nephrolithiasis Instructions: ED Kidney Stone Undescended No ..., ED Kidney Stone, Passed Prescriptions: No Action melatonin 10 MG tablet 10 mg PO QHS PRN (Reason: Sleep) RF: 0 sumatriptan succinate [Imitrex] 25 mg tablet See Rx Instructions .ROUTE .COMPLEX Qty: 10 RF: 0 Primary Care Provider: Aniyah Arechiga Referrals: Sohail Gomez MD [STAFF PHYSICIAN] - As Needed (For urologic care) Aniyah Arechiga MD [Primary Care Provider] - As Needed Disposition Disposition: Home, Self Care
[2021-03-02 23:00] VITALS: BP 128/72; PULSE 81; RESP 18; O2SAT 99
== END 2021-03-03 00:21 | disposition home or self-care (01) ==
PROVIDERS: Emergency Provider Emergency Medicine; PCP Internal Medicine
DX: N20.0 Calculus of kidney (principal); E66.9 Obesity, unspecified; Z87.442 Personal history of urinary calculi
CPT/HCPCS: 74176; 81001; 99283; A4216; J2405

== ENCOUNTER 2021-03-09 07:34 | Emergency (ER) | payer MEDICARE, MEDICAID, SELFPAY ==
[2021-03-09 07:34] VITALS: BP 153/112; PULSE 107; RESP 18; TEMP 36.6; O2SAT 98; BMI 46.2
--- NOTE | 2021-03-09 08:00 | ED.VIS.BACK ---
HPI History of Present Illness Chief Complaint: Back Narrative Narrative: 30-year-old male presenting with back pain. He states he stepped out of his door at home today and his mat slipped out from under him and he fell backwards onto his back. Denies head injury or loss of consciousness. He states he was able to get up under his own strength and he did drive to the emergency room on his own. He is ambulatory. He is pain that is worse when he twists his trunk. He describes it is more right-sided in the mid back. Denies any paresthesias. PFSH PFS Medical History Kidney stone Home Medications melatonin 10 mg PO QHS PRN 07/18/20 [History Last Taken Unknown] sumatriptan succinate [Imitrex] See Rx Instructions .ROUTE .COMPLEX #10 tab 01/25/21 [Rx Last Taken Unknown] hydrocodone-acetaminophen 1 tab PO Q6H PRN PRN 3 Days #12 tablet 03/09/21 [Rx Last Taken Unknown] Allergy/AdvReac Type Severity Reaction Status Date / Time acetaminophen [From Tylenol] AdvReac Unknown Verified 03/09/21 07:36 amoxicillin trihydrate AdvReac Vomiting Verified 03/09/21 07:36 [From Augmentin] diphenhydramine HCl AdvReac Other Verified 03/09/21 07:36 [From Benadryl] potassium clavulanate AdvReac Vomiting Verified 03/09/21 07:36 [From Augmentin] Surgical History H/O lithotripsy Social History Smoking Status: Never smoker ROS ROS ED Constitutional Constitutional ED: Denies chills or fever(s) Eyes Eyes: Denies blurry vision or diplopia ENT ENT ED: Denies rhinorrhea or sore throat Cardiovascular Cardiovascular: Reports other; Denies chest pain or palpitations Respiratory/Chest Respiratory/Chest: Denies dyspnea or sputum Gastrointestinal Gastrointestinal: Denies abdominal pain, nausea or vomiting Genitourinary Genitourinary ED: Denies dysuria or hematuria Musculoskeletal Musculoskeletal: Reports back pain; Denies neck pain Integumentary Denies rash Neurologic Neurologic: Denies headache(s) or paresthesias EXAM Physical Exam Const Vital Signs: 03/09/21 07:34 Temperature 98 F Temperature Source Temporal Pulse Rate 107 H Respiratory Rate 18 Blood Pressure 153/112 H Blood Pressure Mean 125 Pulse Ox 98 Oxygen Delivery Method Room Air Positive well nourished General Appearance ED: NAD; Negative for pallor HEENT Reports moist mucous membranes Negative for trauma Eyes PERRL and EOMs intact bilaterally Resp normal respiratory effort Effort and Inspection: able to speak in complete sentences Cardio regular rate and regular rhythm Back/Spine Thoracic Spine / Upper Back: paraspinal muscle tenderness right Extremity normal to inspection General Extremety ED: Negative for tenderness Neuro oriented x3 and no sensory deficits noted Sensorium / Orientation: alert Motor Exam: strength 5/5 throughout Psych mental status grossly normal Skin no wounds General Skin Exam: Negative for jaundice or pallor MDM MDM MDM Narrative Medical decision making narrative: Patient presenting with back pain from mechanical fall. On examination he does have some right paraspinal muscular tenderness. There is no midline spinal tenderness to palpation. Patient given a shot of Toradol and a Lidoderm patch since he is driving. I did obtain x-rays of the thoracic spine which showed no acute fractures on my interpretation. The radiologist does agree with states there is increased kyphosis. Patient will be given prescription for [place] for pain. He is given a work note. Patient stable for discharge. Impression: 1. Mechanical fall 2. Back contusion Radiography Diagnostic Testing: Clinical Impression(s) from Imaging Studies Thoracic Spine X-Ray 03/09/21 08:29 IMPRESSION: Increased kyphosis. Electronically Signed: Joel Ferraro MD at 8:56 EST , Service support , Discharge Plan Triage Chief Complaint: Back ED Provider: Aleksandr Tanner Dx/Rx/DC Orders Instructions: ED Back Contusion Prescriptions: New hydrocodone-acetaminophen 5-325 mg tablet 1 tab PO Q6H PRN PRN (Reason: Pain) 3 Days Qty: 12 RF: 0 No Action melatonin 10 MG tablet 10 mg PO QHS PRN (Reason: Sleep) RF: 0 sumatriptan succinate [Imitrex] 25 mg tablet See Rx Instructions .ROUTE .COMPLEX Qty: 10 RF: 0 Primary Care Provider: Aniyah Arechiga Referrals: Aniyah Arechiga MD [Primary Care Provider] - Disposition Disposition: Home, Self Care
--- NOTE | 2021-03-09 08:29 | RAD_ITS ---
STUDY: X-RAY - THORACIC SPINE REASON FOR EXAM: Male, 30 years old. Back pain TECHNIQUE: 3 view(s) of the thoracic spine were obtained. COMPARISON: None. FINDINGS: There is an increase in the normal thoracic kyphosis. There is no substantial scoliosis. Normal thoracic vertebrae and endplates. Normal disc space heights. The soft tissue structures are unremarkable. RAD/Thoracic Spine 3 Views IMPRESSION: Increased kyphosis. Electronically Signed: Joel Ferraro MD at 8:56 EST , Service support ,
[2021-03-09] MEDS: Lidocaine 5% Patch 1 PATCH TOPICAL (09:04)
[2021-03-09] MEDS: Ketorolac 30 MG/ML Syringe 15 MG IM (09:05)
[2021-03-09 09:57] VITALS: BP 134/79; PULSE 84; RESP 16; O2SAT 100
--- NOTE | 2021-03-09 09:57 | ED.RN ---
THIS NURSE REVIEWED D/C INSTRUCTIONS WITH PT. PT VERBALIZED UNDERSTANDING OF INSTRUCTIONS. PT DENIES FURTHER NEEDS OR QUESTIONS AT THIS TIME. PT AMBULATES FROM ROOM ON OWN WITHOUT ASSISTANCE FROM STAFF
== END 2021-03-09 10:01 | disposition home or self-care (01) ==
PROVIDERS: Emergency Provider Student in an Organized Health Care Education/Training Program; PCP Internal Medicine
DX: S20.229A Contusion of unspecified back wall of thorax, initial encounter (principal); W01.0XXA Fall on same level from slipping, tripping and stumbling without subsequent striking against object, initial encounter; Z87.442 Personal history of urinary calculi
CPT/HCPCS: 72072; 96372; 99283

== ENCOUNTER 2022-06-27 11:55 | Emergency (ER) | payer MEDICARE, MEDICAID, SELFPAY ==
[2022-06-27 11:56] VITALS: BP 143/102; PULSE 83; RESP 18; TEMP 36; O2SAT 98; BMI 49.0
--- NOTE | 2022-06-27 12:19 | RAD_ITS ---
STUDY: X-RAY CHEST REASON FOR EXAM: Male, 31 years old. Atypical chest pain TECHNIQUE: PA and lateral views of the chest. COMPARISON: 10/20/2019 FINDINGS: EKG leads overlie the chest The lungs are clear and expanded. There is no demonstrated pleural abnormality. Normal size heart. Normal mediastinum and kyle. Normal visualized pulmonary arteries. Normal visualized aortic arch and descending thoracic aorta. Normal visualized thoracic spine. Normal visualized ribs, clavicles, and shoulders. There is no demonstrated abnormality of the visualized soft tissue structures of the upper abdomen. RAD/Chest PA and Lateral IMPRESSION: Normal x-ray examination of the chest. Electronically Signed: Kumar Moise MD at 12:57 EST ,
--- NOTE | 2022-06-27 12:19 | EKG12_ITS ---
Test Reason : GEN ILLNESS Blood Pressure : / mmHG Vent. Rate : 077 BPM Atrial Rate : 077 BPM P-R Int : 130 ms QRS Dur : 102 ms QT Int : 368 ms P-R-T Axes : 019 -08 -01 degrees QTc Int : 416 ms Normal sinus rhythm Minimal voltage criteria for LVH, may be normal variant ( R in aVL ) Borderline ECG Confirmed by AYAAN MARTINEZ, JATINDER ([id number]), editorial director ANGELINE MATA ([id number]) on 06/29/2022 9:36:13 AM Referred By: Confirmed By:JATINDER KUO MD
[2022-06-27] MEDS: Aspirin 81 MG TAB.CHEW 324 MG PO (12:26)
[2022-06-27 12:29] LABS: Absolute Lymphocyte Count 1.43 X10^3/uL (0.83-4.51); Basophil# 0.02 X10^3/uL; Basophil% 0.3 % (0-1); Eosinophils% 1.7 % (0-5); Hematocrit 42.7 % (40-54); Hemoglobin 14.7 g/dL (13.0-16.5); Lymphocyte # 1.43 X10^3/ul (0.83-4.51); Lymphocyte % 24.7 % (19-41); Mean Corp Hgb Conc 34.4 g/dL (32-36); Mean Corpuscular Hgb 31.1 pg (27.0-32.0); Mean Corpuscular Volume 90.3 fL (80-94); Mean Platelet Vol. 10.3 fl (6.2-12.0); Monocyte# 0.24 X10^3/uL; Monocyte% 4.1 % (0-10); NRBC Flagged by Analyzer 0 % (0-5); Neutrophil # 3.98 X10^3/uL (2.7-7.7); Neutrophil % 68.9 % (47-70); Platelet Count 144 K/mm3 (150-450); RBC Distribution Width CV 12.4 % (11.6-14.6); Red Blood Count 4.73 M/mm3 (4.6-6.2); White Blood Count 5.8 K/mm3 (4.4-11.0)
[2022-06-27 12:46] LABS: Anion Gap 4 (5-15); BUN 8 mg/dL (7-18); BUN/Creat Ratio 8.3 RATIO (10-20); Calcium,Total 8.8 mg/dL (8.5-10.1); Chloride 108 mmol/L (98-107); Creatinine, Serum 0.96 mg/dL (0.70-1.30); EST Glomerular Filtration Rate 97 mL/min (>60); Est Glom Filt Rate - Afr Amer 117 mL/min (>60); Estimated Creatinine Clearance 133.25 ml/min; Glucose 105 mg/dL (74-106); Potassium 3.7 mmol/L (3.5-5.1); Sodium Level 138 mmol/L (136-145); Troponin-I HS (w/2H Reflex) 4 pg/mL (3.0-78.0)
--- NOTE | 2022-06-27 13:06 | EDS_ITS ---
HPI History of Present Illness Chief Complaint: General Illness Informant: patient Narrative Narrative: Presents to ED persistent chest symptoms for the past 5 days. 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 He went to [facility] in [place] and had a cardiac work-up that was negative. He was referred to cardiology appointment not till the 6. Occasional cigar history denies family history of heart attacks at a young age. Denies hypertension diabetes or hyperlipidemia. Denies recent travel surgery or immobilizations. No history of PE or DVT. No history of stress test. He states that his boss has kept him home from work since then however when he does steps he would have recurrent symptoms of chest tightness and dyspnea resolved after few minutes. He had mild symptoms today. He is asymptomatic on arrival. He reports he had a cough this past . No fevers. He had paperwork from his work-up 5 days ago had a PCR flu and COVID that were negative. [facility] Medical History Kidney stone Medical History no medical history Home Medications melatonin 10 mg sublingual tablet 10 mg PO QHS PRN Sleep 07/18/20 [History Last Taken Unknown] sumatriptan succinate 25 mg tablet (Imitrex) See Rx Instructions PO .COMPLEX #10 tabs 01/25/21 [Rx Last Taken Unknown] hydrocodone-acetaminophen 5-325mg 5mg-325mg 1 tab PO Q6H PRN PRN Pain 3 days #12 TABLETS 03/09/21 [Rx Last Taken Unknown] Allergy/AdvReac Type Severity Reaction Status Date / Time acetaminophen [From Tylenol] AdvReac Unknown Verified 06/27/22 11:58 amoxicillin trihydrate AdvReac Vomiting Verified 06/27/22 11:58 [From Augmentin] diphenhydramine HCl AdvReac Other Verified 06/27/22 11:58 [From Benadryl] potassium clavulanate AdvReac Vomiting Verified 06/27/22 11:58 [From Augmentin] Surgical History H/O lithotripsy Surgical History no surgical history Social History Smoking Status: Current some day smoker tobacco type: cigars ROS ROS ED Constitutional Constitutional ED: Denies chills, fever(s) or sweats Eyes Eyes: Denies change in vision ENT ENT ED: Denies dysphagia or sore throat Cardiovascular Cardiovascular: Reports chest pain; Denies leg edema, palpitations or racing heartbeat Respiratory/Chest Respiratory/Chest: Reports dyspnea; Denies cough or dyspnea on exertion Gastrointestinal Gastrointestinal: Denies abdominal pain, diarrhea, nausea or vomiting Genitourinary Genitourinary ED: Denies dysuria, hematuria or urinary frequency Musculoskeletal Musculoskeletal: Denies back pain, extremity pain or neck pain Integumentary Denies rash or wounds Neurologic Neurologic: Denies headache(s), paresthesias or weakness EXAM Physical Exam Const Vital Signs: 06/27/22 11:56 06/27/22 12:14 06/27/22 12:23 Temperature 96.8 F L Temperature Source Temporal Pulse Rate 83 Respiratory Rate 18 Respiratory Effort Normal Non-Labored Respiratory Pattern Normal Blood Pressure 143/102 H Blood Pressure Mean 115 Pulse Ox 98 Oxygen Delivery Method Room Air Room Air 06/27/22 13:16 06/27/22 14:44 Temperature Temperature Source Pulse Rate 70 80 Respiratory Rate 16 16 Respiratory Effort Respiratory Pattern Blood Pressure 132/78 H 138/78 H Blood Pressure Mean 96 Pulse Ox 99 98 Oxygen Delivery Method Room Air Positive well nourished and well developed General Appearance ED: well developed and NAD HEENT Reports moist mucous membranes normocephalic and atraumatic Eyes PERRL, EOMs intact bilaterally and conjunctivae normal General Eye ED: Yes normal appearance of both eyes Neck no lymphadenopathy and supple General: Negative for tenderness Chest Wall Chest: Negative for tenderness Resp normal respiratory effort and normal air movement Effort and Inspection: symmetric chest movement; Negative for respiratory distress Cardio regular rate, regular rhythm and no murmurs Peripheral Pulses: pulses 2+ throughout GI normal to inspection, nondistended, normoactive bowel sounds and non-tender Palpation: Negative for guarding or rebound tenderness present Back/Spine no CVA tenderness and no thoracic nor lumbar tenderness Extremity normal to inspection General Extremety ED: Negative for edema or tenderness General Extremity: Negative for edema Neuro oriented x3 and no sensory deficits noted Sensorium / Orientation: awake and alert Skin no rashes or lesions noted and no wounds MDM MDM MDM Narrative Medical decision making narrative: Interventions / MDM: Differential diagnosis: Acute coronary syndrome, chest pains, viral syndrome Diagnosis considered but do not suspect: Pulmonary embolism, however PERC criteria negative. My EKG interpretation: Sinus rhythm rate of 77, no ST changes?T wave inversions in 3 and aVF similar from EKG back in 2019. Imaging independently reviewed and interpreted by myself: 2 view chest x-ray no acute process External documents reviewed: N/A Test considered but not ordered:N/A ED course: Patient presents here for persistent symptoms after being seen in outside hospital 5 days ago for chest pains. Symptom-free on evaluation EKG chronic T wave inversions inferior leads. Labs obtained initial troponin is now. Two-view chest x-ray negative. Heart score is a 3. With concerning story with exertional chest tightness dyspnea resolves with rest, will discuss with cardiology for plan of care. 1415: I spoke with adjunct physics instructor Dr. Irby, discussed patient's history and concerning findings. He would like me to add a D-dimer with patient's young age and obesity to rule out potential atypical PE presentation. He states will scan a positive however agrees with admission for either treadmill or nuclear stress echo versus CT coronary arteries in the hospital. Re-evaluation: 1420: I went back to explain the patient plan of care, he states he did not want to be hospitalized. He states the other hospital possibly did a D-dimer and was not concerned of a blood clot and did not want this test. I discussed with him cardiology's recommendations he understands this. He is alert and oriented x4 is capable of making decisions. His significant other is present in the room. He understands the risks of potential massive heart attack and loss of he will sign out AGAINST MEDICAL ADVICE. Disposition discussed with patient/family/significant other: Patient and significant other Case discussed with consulting clinician: Material Handler 1St Shift, Dr. Irby Lab Data Attestation: I reviewed the patient's lab results. Labs: Laboratory Results - last 24 hr 06/27/22 06/27/22 06/27/22 12:23 12:23 12:23 WBC 5.8 RBC 4.73 Hgb 14.7 Hct 42.7 MCV 90.3 MCH 31.1 MCHC 34.4 RDW Std Deviation 41.0 RDW Coeff of [place] 12.4 Plt Count 144 L MPV 10.3 Immature Gran % (Auto) 0.300 Neut % (Auto) 68.9 Lymph % (Auto) 24.7 [place] % (Auto) 4.1 Eos % (Auto) 1.7 Baso % (Auto) 0.3 Absolute Neuts (auto) 4.0 Absolute Lymphs (auto) 1.43 Nucleated RBC % 0 PT 13.0 INR 1.0 APTT 32.0 Sodium 138 Potassium 3.7 Chloride 108 H Carbon Dioxide 26.0 Anion Gap 4 L BUN 8 Creatinine 0.96 Estim Creat Clear Calc 133.25 Est GFR (MDRD) Af Amer 117 Est GFR (MDRD) Non-Af 97 BUN/Creatinine Ratio 8.3 L Glucose 105 Calcium 8.8 Troponin I High Sens 4 Radiography Diagnostic Testing: Clinical Impression(s) from Imaging Studies Chest X-Ray 06/27/22 12:19 IMPRESSION: Normal x-ray examination of the chest. Electronically Signed: Kumar Moise MD at 12:57 EST Reading Location ID and State: [address] [place] [address] , Service support , EKG Initial EKG: Attestation: I personally reviewed and interpreted this EKG as follows: Comments: Sinus rhythm rate of 77, no ST changes?T wave inversions in 3 and aVF similar from EKG back in 2019. Discharge Plan Triage Chief Complaint: General Illness ED Provider: Reji Anderson Dx/Rx/DC Orders Clinical Impression: Chest pain, Left against medical advice Instructions: ED Chest Pain, Uncertain Cause Prescriptions: No Action melatonin 10 MG tablet 10 mg PO QHS PRN (Reason: Sleep) sumatriptan succinate [Imitrex] 25 mg tablet See Rx Instructions .ROUTE .COMPLEX Qty: 10 0RF Rx Instructions: take 1 tab at onset of headache; if no relief may repeat 1 tab after at least 2 hrs; max = 4 tabs/24 hr hydrocodone-acetaminophen 5-325 mg tablet 1 tab PO Q6H PRN PRN (Reason: Pain) 3 Days Qty: 12 0RF Primary Care Provider: Aniyah Arechiga Referrals: Aniyah Arechiga MD [Primary Care Provider] - 1 Day Activity Restrictions/Additional Instructions: You are leaving AGAINST MEDICAL ADVICE. Follow-up with cardiology as scheduled for further testing. Return if any worsening symptoms. Disposition Disposition: Against Medical Advice Discharge Date/Time: 06/27/22 14:44
[2022-06-27 13:16] VITALS: BP 132/78; PULSE 70; RESP 16; O2SAT 99
[2022-06-27 14:26] LABS: Reflex Troponin-HS? (from REC) Y
--- NOTE | 2022-06-27 14:42 | ED.RN ---
Pt leaving AMA. Pt educated on AMA procedure. Pt educated on risks of leaving AMA, pt verbalized understadning. Pt educated that he an return to ER at any time. Pt signed AMA paperwork with this nurse as witness and Dr. Ospina. Pt provided with copy of AMA paperwork. IV removed. Pt ambulated out of ER with steady gait
[2022-06-27 14:44] VITALS: BP 138/78; PULSE 80; RESP 16; O2SAT 98
== END 2022-06-27 14:44 | disposition left against medical advice (07) ==
PROVIDERS: Emergency Provider Emergency Medicine; PCP Internal Medicine; Visit Provider Emergency Medicine
DX: R07.9 Chest pain, unspecified (principal); F17.290 Nicotine dependence, other tobacco product, uncomplicated; Z53.29 Procedure and treatment not carried out because of patient's decision for other reasons; E66.9 Obesity, unspecified
CPT/HCPCS: 71046; 80048; 84484; 85025; 85610; 85730; 93005; 99284; A4216

== ENCOUNTER 2024-01-03 09:25 | Emergency (ER) | payer MEDICARE, SELFPAY ==
[2024-01-03 09:26] VITALS: BP 151/108; PULSE 77; RESP 16; TEMP 35.4; O2SAT 99
--- NOTE | 2024-01-03 10:31 | ED.VIS.DENTA ---
HPI History of Present Illness Chief Complaint: Dental Informant: patient Narrative Narrative: Patient is a 33-year-old male with history of poor dentition presenting with worsening right lower tooth pain. Patient states he cracked his wisdom tooth at the base couple months ago. He currently does not have insurance has not been able to follow-up with a dentist. Over the past few days he has had worsening pain. He could not sleep last night because of the pain and came in this morning. He last had 3 ibuprofen and 3 Tylenol at 6 AM with no significant weakness of his symptoms. Does have a large [place] and he feels that ice is not helpful because of this. Denies any swelling of his jaw or in his mouth. Denies difficulty swallowing or breathing. Denies any fever or chills. No other complaints or concerns at this time. Does not regularly smoke cigarettes and occasionally smokes cigars but none recently. [facility] Medical History Kidney stone Home Medications ?Medication ?Instructions ?Recorded ?Last Taken ?Type melatonin 10 mg sublingual tablet 10 mg PO QHS PRN Sleep 07/18/20 Unknown History sumatriptan succinate 25 mg tablet See Rx Instructions PO .COMPLEX 01/25/21 Unknown Rx (Imitrex) #10 tabs hydrocodone-acetaminophen 5-325mg 1 tab PO Q6H PRN PRN Pain 3 days 03/09/21 Unknown Rx 5mg-325mg #12 TABLETS hydrocodone-acetaminophen 5-325mg 1 tab PO Q8H PRN Pain 3 days #10 01/03/24 Unknown Rx 5mg-325mg TABLETS penicillin V potassium 500 mg 500 mg PO 4X/DAY #40 tabs 01/03/24 Unknown Rx tablet Allergy/AdvReac Type Severity Reaction Status Date / Time acetaminophen (From Tylenol) AdvReac Unknown Verified 01/03/24 09:28 amoxicillin trihydrate (From AdvReac Vomiting Verified 01/03/24 09:28 Augmentin) diphenhydramine HCl (From AdvReac Other Verified 01/03/24 09:28 Benadryl) potassium clavulanate (From AdvReac Vomiting Verified 01/03/24 09:28 Augmentin) Family History Other Kidney stone Surgical History H/O lithotripsy Social History Smoking Status: Current some day smoker tobacco type: cigars ROS ROS ED Constitutional Constitutional ED: Denies chills or fever(s) Eyes Eyes: Denies change in vision ENT ENT ED: Reports other Details: Right lower dental pain Gastrointestinal Gastrointestinal: Denies nausea or vomiting Neurologic Neurologic: Denies headache(s) EXAM Physical Exam Const Vital Signs: 01/03/24 09:26 Temperature 95.7 F L Temperature Source Temporal Pulse Rate 77 Respiratory Rate 16 Blood Pressure 151/108 H Blood Pressure Mean 122 Pulse Ox 99 Oxygen Delivery Method Room Air Positive well nourished and well developed General Appearance ED: well developed and NAD HEENT HEENT Narrative: Normocephalic atraumatic. Normal oropharynx. No elevation of the sublingual mucosa. Multiple cracked teeth and dental caries however he has completely eroded right wisdom tooth (tooth #32) that is painful to palpation. Does have surrounding gingival swelling but no abscess appreciated. No submandibular edema appreciated. Eyes PERRL and EOMs intact bilaterally Neck no lymphadenopathy and supple Chest Wall inspection of chest normal Resp normal respiratory effort and clear to auscultation bilaterally Cardio regular rate and regular rhythm Neuro oriented x3 Sensorium / Orientation: alert Psych mental status grossly normal Skin no rashes or lesions noted and no wounds MDM MDM MDM Narrative Medical decision making narrative: Patient evaluated for worsening right lower dental pain. Physical exam consistent with likely dental abscess however there is no area of abscess amenable to drainage at this time. Patient is offered a dental block but declines. Will be placed on penicillin. He does report a history of an allergy to Augmentin but states it was a rash as a child and that he had penicillin before and tolerated it just fine. Will be given a short course of [place] for pain control as well. Is given dental referral sheet. Given return precautions. This time does not have more severe features of Corey's angina and there is no airway compromise. I feel he is a good candidate for outpatient treatment. Discharge Plan Triage Chief Complaint: Dental ED Provider: Padmini Pearson Dx/Rx/DC Orders Clinical Impression: Pain due to dental caries Instructions: ED Dental Pain, ED Dental Abscess Prescriptions: New penicillin V potassium 500 mg tablet 500 mg PO 4X/DAY Qty: 40 0RF hydrocodone-acetaminophen 5-325 mg tablet 1 tab PO Q8H PRN (Reason: Pain) 3 Days Qty: 10 0RF No Action melatonin 10 MG tablet 10 mg PO QHS PRN (Reason: Sleep) sumatriptan succinate [Imitrex] 25 mg tablet See Rx Instructions .ROUTE .COMPLEX Qty: 10 0RF Rx Instructions: take 1 tab at onset of headache; if no relief may repeat 1 tab after at least 2 hrs; max = 4 tabs/24 hr hydrocodone-acetaminophen 5-325 mg tablet 1 tab PO Q6H PRN PRN (Reason: Pain) 3 Days Qty: 12 0RF Primary Care Provider: Aniyah Arechiga Referrals: Aniyah Arechiga MD [Primary Care Provider] - Activity Restrictions/Additional Instructions: Please follow-up with dentist as we discussed. Return if you have progression worsening your symptoms or significant swelling of your face. Print Language: Arabic Disposition Disposition: Home, Self Care
[2024-01-03] MEDS: Penicillin Vk 250 MG Tablet 500 MG PO (10:33)
[2024-01-03 11:09] VITALS: BP 147/96; PULSE 70; RESP 16; TEMP 36.3; O2SAT 97
== END 2024-01-03 11:10 | disposition home or self-care (01) ==
PROVIDERS: Emergency Provider Emergency Medicine; PCP Internal Medicine; Visit Provider Emergency Medicine
DX: K02.9 Dental caries, unspecified (principal); F17.290 Nicotine dependence, other tobacco product, uncomplicated
CPT/HCPCS: 99282